=== PATIENT | male | born 1945 | race Caucasian/White ===

== ENCOUNTER 2022-12-10 16:25 | Emergency (ER) | payer MEDICARE, OTHER ==
[2022-12-10] MEDS ORDERED: Ketorolac 30 MG/ML SDV IM ONE (16:56)
[2022-12-10] MEDS ORDERED: Acetaminophen/oxyCODONE 325-5 MG Tab PO STA (16:56)
[2022-12-10] MEDS ORDERED: Cyclobenzaprine 10 MG Tab PO ONE (16:56)
[2022-12-10] MEDS ORDERED: Lidocaine 4% 1 each Patch TOP STA (17:05)
== END 2022-12-10 18:20 | disposition home or self-care (01) ==
LOC: FB.ED 16:25
DX: M51.36 Other intervertebral disc degeneration, lumbar region (principal); Z88.2 Allergy status to sulfonamides
CPT/HCPCS: 96372; 99283; A9270-GY; J1885

== ENCOUNTER 2022-12-13 10:03 | Emergency (ER) | payer MEDICARE ==
[2022-12-13] MEDS ORDERED: Sodium Chloride 0.9% 10 ML Syringe FLUSH PRN (10:28)
[2022-12-13] MEDS ORDERED: Sodium Chloride 0.9% 500 ML IV ONE ×4 (10:51→16:10)
[2022-12-13 11:07] LABS: HEMATOCRIT 37.5 % (38.3-50.1); HEMOGLOBIN 12.5 g/dL (12.9-17.7); MEAN CORPUSCULAR HEMOGLOBIN 30.2 pg (27.0-33.3); MEAN CORPUSCULAR HGB CONC 33.4 g/dL (28.7-35.3); MEAN CORPUSCULAR VOLUME 90.5 fL (80.8-98.7); MEAN PLATELET VOLUME 7.3 fL (6.7-11.0); PLATELET COUNT,PLT 199 x10(3)uL (117-477); RED BLOOD CELL COUNT 4.14 x10(6)uL (3.90-5.90); RED CELL DISTRIBUTION WIDTH 16.8 % (12.4-15.0); WHITE BLOOD CELL COUNT,WBC 11.1 x10-3/uL (3.2-10.1)
[2022-12-13 11:10] LABS: A/G RATIO 0.7; ALANINE AMINOTRANSFERASE,ALT 25 U/L (12-36); ALBUMIN 3.1 g/dL (3.2-4.6); ALKALINE PHOSPHATASE 112 IU/L (56-112); ASPARTATE AMNIOTRANSFERASE,AST 35 IU/L (5-25); BILIRUBIN TOTAL 0.4 mg/dL (0.1-1.3); BUN/CREATININE RATIO 17.7 (9-20); CALCIUM 7.1 mg/dL (8.6-10.2); CHLORIDE,CL 100 mmol/L (100-110); EST CRCL DRUG DOSING (CG) 7.82 mL/min; ESTIMATED GFR 7 mL/min (>60); GLUCOSE RANDOM 137 mg/dL (80-116); MAGNESIUM 1.7 mg/dL (1.8-2.5); PROTEIN TOTAL,TP 7.7 g/dL (6.0-8.0); SODIUM,NA 133 mmol/L (135-145)
[2022-12-13 11:18] LABS: TROPONIN I 43.7 pg/mL (4.0-60.3)
[2022-12-13 11:19] LABS: ANISOCYTOSIS FEW; LYMPHOCYTES PERCENT MAN 6 % (13-37); MONOCYTES PERCENT MAN 4 % (4-12); SEG NEUTROPHILS PERCENT MAN 90 % (46-82)
[2022-12-13 11:25] LABS: CARBON DIOXIDE,CO2 5 mmol/L (21-32); POTASSIUM,K 6.2 mmol/L (3.5-5.3)
[2022-12-13 11:27] LABS: C-REACTIVE PROTEIN 12.94 mg/dL (<0.33)
[2022-12-13 11:28] LABS: INFLUENZA A NAA NEGATIVE (NEGATIVE); INFLUENZA B NAA NEGATIVE (NEGATIVE); RESPIRATORY SYNCYTIAL VIR NAA NEGATIVE (NEGATIVE)
[2022-12-13 11:30] LABS: BLOOD UREA NITROGEN,BUN 140 mg/dL (7-18); CREATININE 7.9 mg/dL (0.70-1.30)
[2022-12-13 11:32] LABS: CORONAVIRUS COVID-19 NAA NEGATIVE (NEGATIVE)
[2022-12-13] MEDS ORDERED: 50% Dextrose in Water 50 ML Syringe IVPUSH ONE (11:33)
[2022-12-13] MEDS ORDERED: Sodium Bicarbonate 8.4% 50 MEQ/50 ML Syringe IVPUSH ONE (11:33)
[2022-12-13] MEDS ORDERED: Insulin Regular, Human 100 Units/ML 3 ML Vial IV ONE (11:33)
[2022-12-13] MEDS ORDERED: Albuterol 0.083% 2.5 MG/3 ML Neb Soln NEB ONE (11:33)
[2022-12-13] MEDS ORDERED: 50% Dextrose in Water 50 ML Syringe IVPUSH PRN (11:33)
[2022-12-13] MEDS ORDERED: Glucagon,Human Recombinant 1 MG Vial IM PRN (11:33)
[2022-12-13 11:57] LABS: BASE EXCESS VENOUS,POC -21 mmol/L (-2 - 3+); PCO2 VENOUS,POC 16 mmHg (41-51); PH VENOUS,POC 7.15 pH Units (7.32-7.43)
[2022-12-13] MEDS ORDERED: cefTRIAXone 2 GM Vial IVPUSH ONE (12:02)
[2022-12-13] MEDS ORDERED: cefTRIAXone 1 GM Vial IVPUSH ONE (12:15)
[2022-12-13] MEDS ORDERED: Lidocaine 2% HCl 6 ML Jel ONE (12:31)
[2022-12-13] MEDS ORDERED: Sodium Polystyrene Sulfonate 15 GM/60 ML Susp 60 ML Bot PO ONE (12:47)
[2022-12-13 14:40] LABS: BILIRUBIN,URINE NEGATIVE (NEGATIVE); GLUCOSE,URINE NORMAL (NORMAL); KETONES,URINE NEGATIVE (NEGATIVE); LEUKOCYTE ESTERASE,URINE SMALL (NEGATIVE); NITRITE,URINE NEGATIVE (NEGATIVE); OCCULT BLOOD,URINE LARGE (NEGATIVE); PROTEIN,URINE NEGATIVE (NEGATIVE); UROBILINOGEN,URINE NORMAL (NEGATIVE)
[2022-12-13 14:41] LABS: APPEARANCE,URINE CLEAR (CLEAR); COLOR,URINE YELLOW (YELLOW); RBC,URINE 20-30 (0-5)
[2022-12-13 14:42] LABS: BACTERIA,URINE MODERATE (NS); SQUAMOUS EPITHELIAL CELLS,UR FEW (NS,R,O)
== END 2022-12-13 18:41 ==
LOC: FB.ED 10:03
DX: L03.315 Cellulitis of perineum (principal); L03.115 Cellulitis of right lower limb; E87.20 Acidosis, unspecified; N17.9 Acute kidney failure, unspecified; A41.9 Sepsis, unspecified organism; I10 Essential (primary) hypertension; I25.10 Atherosclerotic heart disease of native coronary artery without angina pectoris; Z88.2 Allergy status to sulfonamides; Z88.1 Allergy status to other antibiotic agents; Z79.899 Other long term (current) drug therapy; Z20.822 Contact with and (suspected) exposure to COVID-19
CPT/HCPCS: 0241U; 36415; 51702; 73590; 74176; 80053; 81001; 83605; 83735; 83880; 84132; 84484; 85025; 86140; 87040; 87086; 93005; 96361; 96374; 96375; 99285; A9270; J0696; J1815; J7040

== ENCOUNTER 2022-12-19 09:54 | Inpatient (IN) | payer MEDICARE ==
[2022-12-19] MEDS ORDERED: Nitroglycerin 0.4 MG Tab.SL SL PRN (18:05)
[2022-12-19] MEDS ORDERED: Ibuprofen 200 MG Tab PO PRN (18:05)
[2022-12-19] MEDS ORDERED: Albuterol 8 GM Inhaler INH PRN (18:05)
[2022-12-19] MEDS ORDERED: Furosemide 20 MG Tab PO PRN (18:05)
[2022-12-19] MEDS: Sodium Bicarbonate 650 MG Tab PO SCH (20:14)
[2022-12-19] MEDS: Cyclobenzaprine 10 MG Tab PO SCH (20:15)
[2022-12-19] MEDS: Montelukast 10 MG Tab PO SCH (20:15)
[2022-12-19] MEDS: Amoxicillin/Clavulanate K 875-125 MG Tab PO SCH (20:15)
[2022-12-20] MEDS: traMADol 50 MG Tab PO PRN ×2 (00:28→08:52)
[2022-12-20] MEDS: Pantoprazole 40 MG Tab.CR PO SCH (05:53)
[2022-12-20] MEDS: Amoxicillin/Clavulanate K 875-125 MG Tab PO SCH ×2 (09:48→18:20)
[2022-12-20] MEDS: metFORMIN 500 MG Tab PO SCH ×2 (09:48→18:20)
[2022-12-20] MEDS: Rosuvastatin 5 MG Tab PO SCH (09:49)
[2022-12-20] MEDS: Cyclobenzaprine 10 MG Tab PO SCH ×3 (09:50→21:32)
[2022-12-20] MEDS: Tamsulosin 0.4 MG Cap.ER PO SCH (09:51)
[2022-12-20] MEDS: Nicotine 21 MG/24 Hr Patch TRDERM SCH (09:51)
[2022-12-20] MEDS: Primidone 50 MG Tab PO SCH (09:53)
[2022-12-20] MEDS: Propranolol 60 MG Cap.ER PO SCH (09:53)
[2022-12-20] MEDS: Propranolol 80 MG Cap.ER PO SCH (09:53)
[2022-12-20] MEDS: Lisinopril 10 MG Tab PO SCH (09:54)
[2022-12-20] MEDS: Calcitriol 0.25 MCG Cap PO SCH (09:55)
[2022-12-20] MEDS: Sodium Bicarbonate 650 MG Tab PO SCH ×3 (09:55→21:34)
[2022-12-20] MEDS: Cetirizine 10 MG Tab PO SCH (09:56)
[2022-12-20] MEDS: Montelukast 10 MG Tab PO SCH (21:35)
[2022-12-21] MEDS: traMADol 50 MG Tab PO PRN (00:40)
[2022-12-21] MEDS: Pantoprazole 40 MG Tab.CR PO SCH (06:44)
[2022-12-21] MEDS: Amoxicillin/Clavulanate K 875-125 MG Tab PO SCH ×2 (08:45→18:59)
[2022-12-21] MEDS: metFORMIN 500 MG Tab PO SCH ×2 (08:45→18:49)
[2022-12-21] MEDS: Rosuvastatin 5 MG Tab PO SCH (09:42)
[2022-12-21] MEDS: Propranolol 80 MG Cap.ER PO SCH (09:45)
[2022-12-21] MEDS: Propranolol 60 MG Cap.ER PO SCH (09:45)
[2022-12-21] MEDS: Cyclobenzaprine 10 MG Tab PO SCH ×3 (09:47→20:11)
[2022-12-21] MEDS: Tamsulosin 0.4 MG Cap.ER PO SCH (09:48)
[2022-12-21] MEDS: Nicotine 21 MG/24 Hr Patch TRDERM SCH (09:48)
[2022-12-21] MEDS: Aspirin 81 MG Tab.EC PO SCH (09:49)
[2022-12-21] MEDS: Primidone 50 MG Tab PO SCH (09:49)
[2022-12-21] MEDS: Calcitriol 0.25 MCG Cap PO SCH (09:50)
[2022-12-21] MEDS: Lisinopril 10 MG Tab PO SCH (09:50)
[2022-12-21] MEDS: Cetirizine 10 MG Tab PO SCH (09:51)
[2022-12-21] MEDS: Sodium Bicarbonate 650 MG Tab PO SCH ×3 (09:51→20:10)
[2022-12-21 10:18] LABS: HEMATOCRIT 32.4 % (38.3-50.1); HEMOGLOBIN 10.8 g/dL (12.9-17.7); MEAN CORPUSCULAR HEMOGLOBIN 29.8 pg (27.0-33.3); MEAN CORPUSCULAR HGB CONC 33.3 g/dL (28.7-35.3); MEAN CORPUSCULAR VOLUME 89.4 fL (80.8-98.7); MEAN PLATELET VOLUME 7.7 fL (6.7-11.0); PLATELET COUNT,PLT 397 x10(3)uL (117-477); RED BLOOD CELL COUNT 3.62 x10(6)uL (3.90-5.90); RED CELL DISTRIBUTION WIDTH 14.3 % (12.4-15.0); WHITE BLOOD CELL COUNT,WBC 17.5 x10-3/uL (3.2-10.1)
[2022-12-21 10:23] LABS: BLOOD UREA NITROGEN,BUN 39 mg/dL (7-18); BUN/CREATININE RATIO 22.9 (9-20); CALCIUM 9.2 mg/dL (8.6-10.2); CARBON DIOXIDE,CO2 27 mmol/L (21-32); CHLORIDE,CL 101 mmol/L (100-110); CREATININE 1.7 mg/dL (0.70-1.30); EST CRCL DRUG DOSING (CG) 36.32 mL/min; ESTIMATED GFR 42 mL/min (>60); GLUCOSE RANDOM 156 mg/dL (80-116); POTASSIUM,K 3.7 mmol/L (3.5-5.3); SODIUM,NA 137 mmol/L (135-145)
[2022-12-21 10:29] LABS: EOSINOPHILS PERCENT MAN 2 % (0-5); LYMPHOCYTES PERCENT MAN 5 % (13-37); MONOCYTES PERCENT MAN 12 % (4-12); SEG NEUTROPHILS PERCENT MAN 81 % (46-82)
[2022-12-21] MEDS: Furosemide 40 MG Tab PO SCH (11:38)
[2022-12-21 15:58] LABS: BILIRUBIN,URINE SMALL (NEGATIVE); GLUCOSE,URINE NORMAL (NORMAL); KETONES,URINE 15 mg/dL (NEGATIVE); LEUKOCYTE ESTERASE,URINE SMALL (NEGATIVE); NITRITE,URINE NEGATIVE (NEGATIVE); OCCULT BLOOD,URINE TRACE (NEGATIVE); PROTEIN,URINE TRACE mg/dL (NEGATIVE); UROBILINOGEN,URINE NORMAL (NEGATIVE)
[2022-12-21] MEDS ORDERED: VANCOmycin 1.5 GM/300 ML 1.5 GM in Premix Bag 1 BAG IV ONE (16:00)
[2022-12-21 16:03] LABS: APPEARANCE,URINE SLIGHTLY CLOUDY (CLEAR); BACTERIA,URINE MANY (NS); COLOR,URINE ORANGE (YELLOW); HYALINE CASTS,URINE MODERATE (NS); MUCUS,URINE MODERATE (NS); RBC,URINE 0-5 (0-5); SQUAMOUS EPITHELIAL CELLS,UR MODERATE (NS,R,O)
[2022-12-21 16:09] LABS: LACTIC ACID 1.1 mmol/L (0.4-2.0)
[2022-12-21] MEDS: Sodium Chloride 0.9% 1,000 ML IV ONE ×2 (17:33→18:40)
[2022-12-21] MEDS: cefTRIAXone 1 GM Vial IVPUSH SCH (18:52)
[2022-12-21] MEDS: Montelukast 10 MG Tab PO SCH (20:21)
[2022-12-21] MEDS: Sodium Chloride 0.9% 10 ML Syringe FLUSH PRN (20:21)
[2022-12-21] MEDS ORDERED: Ergocalciferol (Vitamin D2) 1.25 MG Cap PO SCH (21:00)
[2022-12-22] MEDS: Pantoprazole 40 MG Tab.CR PO SCH (05:41)
[2022-12-22 06:41] LABS: BASOPHILS ABSOLUTE AUTO 0.1 x10-3/uL (0.0-0.3); BASOPHILS PERCENT AUTO 0.7 % (0.3-3.8); EOSINOPHILS ABSOLUTE AUTO 0.1 x10-3/uL (0.0-0.6); HEMOGLOBIN 8.7 g/dL (12.9-17.7); LYMPHOCYTES ABSOLUTE AUTO 0.9 x10-3/uL (0.5-4.5); LYMPHOCYTES PERCENT AUTO 8.9 % (15.8-45.3); MEAN CORPUSCULAR HGB CONC 33.5 g/dL (28.7-35.3); MEAN CORPUSCULAR VOLUME 89.4 fL (80.8-98.7); MEAN PLATELET VOLUME 7.7 fL (6.7-11.0); MONOCYTES ABSOLUTE AUTO 0.9 x10-3/uL (0.0-1.2); NEUTROPHILS ABSOLUTE AUTO 8.3 x10-3/uL (1.7-6.9); NEUTROPHILS PERCENT AUTO 80.4 % (40.3-71.8); PLATELET COUNT,PLT 370 x10(3)uL (117-477); RED BLOOD CELL COUNT 2.91 x10(6)uL (3.90-5.90); RED CELL DISTRIBUTION WIDTH 14.3 % (12.4-15.0); WHITE BLOOD CELL COUNT,WBC 10.3 x10-3/uL (3.2-10.1)
[2022-12-22 06:52] LABS: A/G RATIO 0.5; ALANINE AMINOTRANSFERASE,ALT 28 U/L (12-36); ALBUMIN 2.1 g/dL (3.2-4.6); ALKALINE PHOSPHATASE 71 IU/L (56-112); ASPARTATE AMNIOTRANSFERASE,AST 26 IU/L (5-25); BILIRUBIN TOTAL 0.5 mg/dL (0.1-1.3); BLOOD UREA NITROGEN,BUN 31 mg/dL (7-18); BUN/CREATININE RATIO 22.1 (9-20); CALCIUM 8.8 mg/dL (8.6-10.2); CARBON DIOXIDE,CO2 27 mmol/L (21-32); CHLORIDE,CL 104 mmol/L (100-110); CREATININE 1.4 mg/dL (0.70-1.30); EST CRCL DRUG DOSING (CG) 44.11 mL/min; ESTIMATED GFR 52 mL/min (>60); GLUCOSE RANDOM 125 mg/dL (80-116); POTASSIUM,K 3.2 mmol/L (3.5-5.3); SODIUM,NA 140 mmol/L (135-145)
[2022-12-22] MEDS: traMADol 50 MG Tab PO PRN (06:59)
[2022-12-22] MEDS: Tamsulosin 0.4 MG Cap.ER PO SCH (08:22)
[2022-12-22] MEDS: Sodium Bicarbonate 650 MG Tab PO SCH ×3 (08:22→21:43)
[2022-12-22] MEDS: Cetirizine 10 MG Tab PO SCH (08:22)
[2022-12-22] MEDS: Calcitriol 0.25 MCG Cap PO SCH (08:22)
[2022-12-22] MEDS: Cyclobenzaprine 10 MG Tab PO SCH ×3 (08:22→21:40)
[2022-12-22] MEDS: metFORMIN 500 MG Tab PO SCH ×2 (08:22→18:08)
[2022-12-22] MEDS: Rosuvastatin 5 MG Tab PO SCH (08:23)
[2022-12-22] MEDS: Nicotine 21 MG/24 Hr Patch TRDERM SCH (08:25)
[2022-12-22] MEDS: Primidone 50 MG Tab PO SCH (08:27)
[2022-12-22] MEDS ORDERED: Potassium Chloride 20 MEQ Tab.ER PO ONE (08:46)
[2022-12-22] MEDS: VANCOmycin 1.25 GM/250 ML 1.25 GM in Premix Bag 1 BAG IV SCH (10:37)
[2022-12-22] MEDS: Lisinopril 10 MG Tab PO SCH (10:42)
[2022-12-22] MEDS: Propranolol 80 MG Cap.ER PO SCH (10:42)
[2022-12-22] MEDS: Propranolol 60 MG Cap.ER PO SCH (10:43)
[2022-12-22] MEDS: Furosemide 40 MG Tab PO SCH (10:43)
[2022-12-22] MEDS: traMADol 50 MG Tab PO SCH (15:45)
[2022-12-22] MEDS: cefTRIAXone 1 GM Vial IVPUSH SCH (18:09)
[2022-12-22] MEDS: Montelukast 10 MG Tab PO SCH (21:40)
[2022-12-23] MEDS ORDERED: traMADol 50 MG Tab ONE (01:16)
[2022-12-23] MEDS: traMADol 50 MG Tab PO SCH ×2 (01:18→10:35)
[2022-12-23] MEDS: Pantoprazole 40 MG Tab.CR PO SCH (06:28)
[2022-12-23 06:30] LABS: BASOPHILS PERCENT AUTO 0.5 % (0.3-3.8); EOSINOPHILS ABSOLUTE AUTO 0.1 x10-3/uL (0.0-0.6); EOSINOPHILS PERCENT AUTO 1.1 % (0.1-6.8); HEMATOCRIT 23.6 % (38.3-50.1); LYMPHOCYTES ABSOLUTE AUTO 0.8 x10-3/uL (0.5-4.5); LYMPHOCYTES PERCENT AUTO 8.7 % (15.8-45.3); MEAN CORPUSCULAR HEMOGLOBIN 30.8 pg (27.0-33.3); MEAN CORPUSCULAR VOLUME 90.6 fL (80.8-98.7); MEAN PLATELET VOLUME 6.7 fL (6.7-11.0); MONOCYTES PERCENT AUTO 10.8 % (5.5-15.2); NEUTROPHILS PERCENT AUTO 78.9 % (40.3-71.8); PLATELET COUNT,PLT 386 x10(3)uL (117-477); RED BLOOD CELL COUNT 2.61 x10(6)uL (3.90-5.90); RED CELL DISTRIBUTION WIDTH 14.8 % (12.4-15.0); WHITE BLOOD CELL COUNT,WBC 8.9 x10-3/uL (3.2-10.1)
[2022-12-23 06:42] LABS: A/G RATIO 0.5; ALANINE AMINOTRANSFERASE,ALT 55 U/L (12-36); ALBUMIN 1.8 g/dL (3.2-4.6); ALKALINE PHOSPHATASE 75 IU/L (56-112); ASPARTATE AMNIOTRANSFERASE,AST 70 IU/L (5-25); BILIRUBIN TOTAL 0.4 mg/dL (0.1-1.3); BLOOD UREA NITROGEN,BUN 26 mg/dL (7-18); BUN/CREATININE RATIO 21.7 (9-20); CALCIUM 8.5 mg/dL (8.6-10.2); CARBON DIOXIDE,CO2 30 mmol/L (21-32); CHLORIDE,CL 107 mmol/L (100-110); CREATININE 1.2 mg/dL (0.70-1.30); EST CRCL DRUG DOSING (CG) 51.46 mL/min; ESTIMATED GFR 63 mL/min (>60); GLUCOSE RANDOM 118 mg/dL (80-116); POTASSIUM,K 3.2 mmol/L (3.5-5.3); PROTEIN TOTAL,TP 5.5 g/dL (6.0-8.0); SODIUM,NA 143 mmol/L (135-145)
[2022-12-23] MEDS: Furosemide 40 MG Tab PO SCH (10:08)
[2022-12-23] MEDS: Primidone 50 MG Tab PO SCH (10:08)
[2022-12-23] MEDS: Propranolol 60 MG Cap.ER PO SCH (10:08)
[2022-12-23] MEDS: Sodium Bicarbonate 650 MG Tab PO SCH ×3 (10:08→21:51)
[2022-12-23] MEDS: Tamsulosin 0.4 MG Cap.ER PO SCH (10:09)
[2022-12-23] MEDS: Rosuvastatin 5 MG Tab PO SCH (10:09)
[2022-12-23] MEDS: Cyclobenzaprine 10 MG Tab PO SCH ×3 (10:11→21:52)
[2022-12-23] MEDS: Nicotine 21 MG/24 Hr Patch TRDERM SCH (10:11)
[2022-12-23] MEDS: Cetirizine 10 MG Tab PO SCH (10:12)
[2022-12-23] MEDS: Lisinopril 10 MG Tab PO SCH (10:12)
[2022-12-23] MEDS: Aspirin 81 MG Tab.EC PO SCH (10:13)
[2022-12-23] MEDS: metFORMIN 500 MG Tab PO SCH ×2 (10:14→17:10)
[2022-12-23] MEDS: Calcitriol 0.25 MCG Cap PO SCH (10:14)
[2022-12-23] MEDS: Propranolol 80 MG Cap.ER PO SCH (10:20)
[2022-12-23] MEDS ORDERED: Potassium Chloride 20 MEQ Tab.ER PO ONE (10:23)
[2022-12-23] MEDS ORDERED: traMADol 50 MG Tab PO PRN (10:34)
[2022-12-23] MEDS: VANCOmycin 1.25 GM/250 ML 1.25 GM in Premix Bag 1 BAG IV SCH (10:47)
[2022-12-23] MEDS: traMADol 50 MG Tab PO PRN ×2 (11:07→17:10)
[2022-12-23] MEDS: Acetaminophen 325 MG Tab PO PRN (13:19)
[2022-12-23] MEDS: cefTRIAXone 1 GM Vial IVPUSH SCH (17:11)
[2022-12-23] MEDS: Montelukast 10 MG Tab PO SCH (21:53)
[2022-12-24] MEDS: traMADol 50 MG Tab PO PRN ×3 (02:35→20:50)
[2022-12-24] MEDS: Acetaminophen 325 MG Tab PO PRN ×3 (05:52→20:52)
[2022-12-24] MEDS: Pantoprazole 40 MG Tab.CR PO SCH (05:52)
[2022-12-24] MEDS: Nicotine 21 MG/24 Hr Patch TRDERM SCH (08:22)
[2022-12-24] MEDS: Calcitriol 0.25 MCG Cap PO SCH (08:25)
[2022-12-24] MEDS: Cyclobenzaprine 10 MG Tab PO SCH ×3 (08:25→20:56)
[2022-12-24] MEDS: Sodium Bicarbonate 650 MG Tab PO SCH ×3 (08:26→20:53)
[2022-12-24] MEDS: Tamsulosin 0.4 MG Cap.ER PO SCH (08:26)
[2022-12-24] MEDS: Cetirizine 10 MG Tab PO SCH (08:26)
[2022-12-24] MEDS: metFORMIN 500 MG Tab PO SCH ×2 (08:26→18:01)
[2022-12-24] MEDS: Rosuvastatin 5 MG Tab PO SCH (08:31)
[2022-12-24] MEDS: Primidone 50 MG Tab PO SCH (08:32)
[2022-12-24] MEDS: Furosemide 40 MG Tab PO SCH (09:56)
[2022-12-24] MEDS: Propranolol 60 MG Cap.ER PO SCH (09:56)
[2022-12-24] MEDS: Propranolol 80 MG Cap.ER PO SCH (09:56)
[2022-12-24] MEDS: Lisinopril 10 MG Tab PO SCH (09:57)
[2022-12-24] MEDS ORDERED: Furosemide 40 MG/4 ML VIAL IVPUSH ONE (09:58)
[2022-12-24 10:15] LABS: BASOPHILS ABSOLUTE AUTO 0.1 x10-3/uL (0.0-0.3); BASOPHILS PERCENT AUTO 0.6 % (0.3-3.8); EOSINOPHILS ABSOLUTE AUTO 0.1 x10-3/uL (0.0-0.6); EOSINOPHILS PERCENT AUTO 0.8 % (0.1-6.8); HEMATOCRIT 26.4 % (38.3-50.1); HEMOGLOBIN 8.8 g/dL (12.9-17.7); LYMPHOCYTES ABSOLUTE AUTO 0.6 x10-3/uL (0.5-4.5); LYMPHOCYTES PERCENT AUTO 5.5 % (15.8-45.3); MEAN CORPUSCULAR HEMOGLOBIN 29.7 pg (27.0-33.3); MEAN CORPUSCULAR HGB CONC 33.3 g/dL (28.7-35.3); MEAN CORPUSCULAR VOLUME 89.1 fL (80.8-98.7); MEAN PLATELET VOLUME 7.1 fL (6.7-11.0); MONOCYTES PERCENT AUTO 8.6 % (5.5-15.2); NEUTROPHILS ABSOLUTE AUTO 9.5 x10-3/uL (1.7-6.9); NEUTROPHILS PERCENT AUTO 84.5 % (40.3-71.8); PLATELET COUNT,PLT 381 x10(3)uL (117-477); RED BLOOD CELL COUNT 2.96 x10(6)uL (3.90-5.90); RED CELL DISTRIBUTION WIDTH 14.8 % (12.4-15.0); WHITE BLOOD CELL COUNT,WBC 11.2 x10-3/uL (3.2-10.1)
[2022-12-24 10:17] LABS: BLOOD UREA NITROGEN,BUN 24 mg/dL (7-18); CALCIUM 8.5 mg/dL (8.6-10.2); CARBON DIOXIDE,CO2 26 mmol/L (21-32); CHLORIDE,CL 102 mmol/L (100-110); CREATININE 1.2 mg/dL (0.70-1.30); EST CRCL DRUG DOSING (CG) 51.46 mL/min; ESTIMATED GFR 63 mL/min (>60); GLUCOSE RANDOM 187 mg/dL (80-116); POTASSIUM,K 3.8 mmol/L (3.5-5.3); SODIUM,NA 137 mmol/L (135-145)
[2022-12-24] MEDS ORDERED: Cephalexin 500 MG Cap PO SCH (11:00)
[2022-12-24] MEDS: Amoxicillin/Clavulanate K 875-125 MG Tab PO SCH ×2 (11:26→20:58)
[2022-12-24 16:09] LABS: ALBUMIN 1.8 g/dL (3.2-4.6); BILIRUBIN DIRECT 0.06 mg/dL (0.10-0.20); BILIRUBIN TOTAL 0.4 mg/dL (0.1-1.3); PROTEIN TOTAL,TP 5.9 g/dL (6.0-8.0)
[2022-12-24 16:28] LABS: BILIRUBIN,URINE NEGATIVE (NEGATIVE); GLUCOSE,URINE NORMAL (NORMAL); KETONES,URINE NEGATIVE (NEGATIVE); LEUKOCYTE ESTERASE,URINE NEGATIVE (NEGATIVE); NITRITE,URINE NEGATIVE (NEGATIVE); OCCULT BLOOD,URINE LARGE (NEGATIVE); PROTEIN,URINE NEGATIVE (NEGATIVE); UROBILINOGEN,URINE NORMAL (NEGATIVE)
[2022-12-24 17:47] LABS: APPEARANCE,URINE CLEAR (CLEAR); BACTERIA,URINE FEW (NS); COLOR,URINE YELLOW (YELLOW); WBC,URINE 0-5 (0-5)
[2022-12-24] MEDS: Montelukast 10 MG Tab PO SCH (20:55)
[2022-12-25] MEDS: Pantoprazole 40 MG Tab.CR PO SCH (06:15)
[2022-12-25 06:23] LABS: BASOPHILS ABSOLUTE AUTO 0.1 x10-3/uL (0.0-0.3); BASOPHILS PERCENT AUTO 0.6 % (0.3-3.8); EOSINOPHILS ABSOLUTE AUTO 0.1 x10-3/uL (0.0-0.6); EOSINOPHILS PERCENT AUTO 1.4 % (0.1-6.8); HEMATOCRIT 23.7 % (38.3-50.1); HEMOGLOBIN 8.2 g/dL (12.9-17.7); LYMPHOCYTES ABSOLUTE AUTO 0.8 x10-3/uL (0.5-4.5); LYMPHOCYTES PERCENT AUTO 10.1 % (15.8-45.3); MEAN CORPUSCULAR HEMOGLOBIN 30.7 pg (27.0-33.3); MEAN CORPUSCULAR HGB CONC 34.6 g/dL (28.7-35.3); MEAN CORPUSCULAR VOLUME 88.7 fL (80.8-98.7); MEAN PLATELET VOLUME 6.8 fL (6.7-11.0); MONOCYTES ABSOLUTE AUTO 0.7 x10-3/uL (0.0-1.2); MONOCYTES PERCENT AUTO 8.4 % (5.5-15.2); NEUTROPHILS ABSOLUTE AUTO 6.6 x10-3/uL (1.7-6.9); NEUTROPHILS PERCENT AUTO 79.5 % (40.3-71.8); PLATELET COUNT,PLT 459 x10(3)uL (117-477); RED BLOOD CELL COUNT 2.68 x10(6)uL (3.90-5.90); RED CELL DISTRIBUTION WIDTH 14.3 % (12.4-15.0); WHITE BLOOD CELL COUNT,WBC 8.4 x10-3/uL (3.2-10.1)
[2022-12-25 06:37] LABS: A/G RATIO 0.4; ALKALINE PHOSPHATASE 205 IU/L (56-112); BILIRUBIN TOTAL 0.4 mg/dL (0.1-1.3); BLOOD UREA NITROGEN,BUN 18 mg/dL (7-18); CALCIUM 8.2 mg/dL (8.6-10.2); CARBON DIOXIDE,CO2 30 mmol/L (21-32); CHLORIDE,CL 104 mmol/L (100-110); EST CRCL DRUG DOSING (CG) 61.75 mL/min; ESTIMATED GFR 78 mL/min (>60); GLUCOSE RANDOM 120 mg/dL (80-116); PROTEIN TOTAL,TP 5.6 g/dL (6.0-8.0); SODIUM,NA 140 mmol/L (135-145)
[2022-12-25 06:38] LABS: ALANINE AMINOTRANSFERASE,ALT 210 U/L (12-36); ALBUMIN 1.7 g/dL (3.2-4.6); ASPARTATE AMNIOTRANSFERASE,AST 210 IU/L (5-25)
[2022-12-25] MEDS ORDERED: Potassium Chloride 20 MEQ Tab.ER PO ONE (08:23)
[2022-12-25] MEDS ORDERED: Furosemide 20 MG/2 ML VIAL IVPUSH SCH (09:00)
[2022-12-25] MEDS: Nicotine 21 MG/24 Hr Patch TRDERM SCH (09:10)
[2022-12-25] MEDS: traMADol 50 MG Tab PO PRN (09:11)
[2022-12-25] MEDS: Sodium Bicarbonate 650 MG Tab PO SCH (09:11)
[2022-12-25] MEDS: Cyclobenzaprine 10 MG Tab PO SCH (09:12)
[2022-12-25] MEDS: Calcitriol 0.25 MCG Cap PO SCH (09:12)
[2022-12-25] MEDS: Aspirin 81 MG Tab.EC PO SCH (09:13)
[2022-12-25] MEDS: Cetirizine 10 MG Tab PO SCH (09:13)
[2022-12-25] MEDS: Lisinopril 10 MG Tab PO SCH (09:13)
[2022-12-25] MEDS: Amoxicillin/Clavulanate K 875-125 MG Tab PO SCH (09:14)
[2022-12-25] MEDS: metFORMIN 500 MG Tab PO SCH (09:14)
[2022-12-25] MEDS: Tamsulosin 0.4 MG Cap.ER PO SCH (09:15)
[2022-12-25] MEDS: Primidone 50 MG Tab PO SCH (09:15)
[2022-12-25] MEDS: Rosuvastatin 5 MG Tab PO SCH (09:16)
[2022-12-25] MEDS: Propranolol 80 MG Cap.ER PO SCH (09:23)
[2022-12-25] MEDS: Propranolol 60 MG Cap.ER PO SCH (09:23)
[2022-12-25] MEDS ORDERED: Enoxaparin 40 MG/0.4 ML Syringe SUBCUT SCH (10:00)
[2022-12-25] MEDS ORDERED: Metoprolol Tartrate 5 MG/5 ML SDV IVPUSH ONE (10:15)
[2022-12-25] MEDS ORDERED: metroNIDAZOLE/Normal Saline 500 MG in Premix Bag 1 BAG IV SCH ×2 (10:30→11:00)
[2022-12-25] MEDS ORDERED: Cefepime 2 GM Vial IVPUSH SCH (11:00)
[2022-12-25] MEDS: Acetaminophen 325 MG Tab PO PRN (11:05)
[2022-12-25] MEDS ORDERED: Metoprolol Tartrate 5 MG/5 ML SDV IVPUSH STA (11:18)
[2022-12-25] MEDS: Sodium Chloride 0.9% 10 ML Syringe FLUSH PRN (11:29)
[2022-12-25] MEDS ORDERED: Amiodarone 150 MG/3 ML SDV IVPUSH STA (12:19)
[2022-12-25 12:56] LABS: LACTIC ACID 1.1 mmol/L (0.4-2.0)
== END 2022-12-25 12:44 | disposition critical access hospital (66) | DRG 948 ==
LOC: FB.MS 14:25 → UNDOADMIN 14:25 → FB.MS 12-25 10:00
PROVIDERS: ADMIT Family Medicine; ATTEND Family Medicine
DX: R53.1 Weakness (principal); N17.9 Acute kidney failure, unspecified; I10 Essential (primary) hypertension; M54.50 Low back pain, unspecified; G89.29 Other chronic pain; E11.9 Type 2 diabetes mellitus without complications; Z66 Do not resuscitate; I25.10 Atherosclerotic heart disease of native coronary artery without angina pectoris; E78.00 Pure hypercholesterolemia, unspecified; E87.6 Hypokalemia; F17.210 Nicotine dependence, cigarettes, uncomplicated; J44.9 Chronic obstructive pulmonary disease, unspecified; K21.9 Gastro-esophageal reflux disease without esophagitis; N40.0 Benign prostatic hyperplasia without lower urinary tract symptoms; D64.9 Anemia, unspecified; Z79.82 Long term (current) use of aspirin; Z79.52 Long term (current) use of systemic steroids; Z79.899 Other long term (current) drug therapy; Z88.2 Allergy status to sulfonamides; Z88.8 Allergy status to other drugs, medicaments and biological substances; Z86.718 Personal history of other venous thrombosis and embolism; Z79.01 Long term (current) use of anticoagulants; Z98.42 Cataract extraction status, left eye; Z98.41 Cataract extraction status, right eye
CPT/HCPCS: 36415; 51702; 71045; 80048; 80053; 80076; 80202; 81001; 82272; 82947; 83605; 83735; 83880; 84443; 85025; 87040; 87086; 93005; 97110-GP; 97161-GP; 97165-GO; 97530-GP; A9270-GY; J0282; J0692; J0696; J1650; J1940; J3370; J3490; J7030

== ENCOUNTER 2022-12-25 12:44 | Inpatient (IN) | payer MEDICARE ==
[2022-12-25] MEDS ORDERED: Lactated Ringers 500 ML IV SCH (12:57)
[2022-12-25] MEDS ORDERED: Acetaminophen 325 MG Tab PO PRN (13:17)
[2022-12-25] MEDS ORDERED: Ondansetron 4 MG Tab.DIS PO PRN (13:17)
[2022-12-25] MEDS ORDERED: Polyethylene Glycol 3350 Powder 17 GM Packet PO PRN (13:17)
[2022-12-25] MEDS ORDERED: Naloxone 0.4 MG/ML SDV IVPUSH PRN (13:21)
[2022-12-25] MEDS ORDERED: Magnesium Sulfate/Water 4 GM in Premix Bag 1 BAG IV ONE (13:22)
[2022-12-25] MEDS: traMADol 50 MG Tab PO SCH ×2 (15:40→22:18)
[2022-12-25] MEDS: metroNIDAZOLE/Normal Saline 500 MG in Premix Bag 1 BAG IV SCH (18:37)
[2022-12-25] MEDS: Cefepime 2 GM Vial IVPUSH SCH (22:22)
[2022-12-26] MEDS: metroNIDAZOLE/Normal Saline 500 MG in Premix Bag 1 BAG IV SCH ×3 (03:41→19:21)
[2022-12-26] MEDS: traMADol 50 MG Tab PO SCH ×5 (03:42→21:51)
[2022-12-26 07:06] LABS: BASOPHILS ABSOLUTE AUTO 0.1 x10-3/uL (0.0-0.3); EOSINOPHILS ABSOLUTE AUTO 0.1 x10-3/uL (0.0-0.6); EOSINOPHILS PERCENT AUTO 1.2 % (0.1-6.8); HEMOGLOBIN 8.5 g/dL (12.9-17.7); LYMPHOCYTES ABSOLUTE AUTO 0.7 x10-3/uL (0.5-4.5); LYMPHOCYTES PERCENT AUTO 7.9 % (15.8-45.3); MEAN CORPUSCULAR HEMOGLOBIN 30.2 pg (27.0-33.3); MEAN CORPUSCULAR HGB CONC 34.2 g/dL (28.7-35.3); MEAN CORPUSCULAR VOLUME 88.4 fL (80.8-98.7); MEAN PLATELET VOLUME 6.5 fL (6.7-11.0); MONOCYTES ABSOLUTE AUTO 0.7 x10-3/uL (0.0-1.2); MONOCYTES PERCENT AUTO 8.1 % (5.5-15.2); NEUTROPHILS ABSOLUTE AUTO 7.3 x10-3/uL (1.7-6.9); NEUTROPHILS PERCENT AUTO 81.8 % (40.3-71.8); PLATELET COUNT,PLT 480 x10(3)uL (117-477); RED BLOOD CELL COUNT 2.83 x10(6)uL (3.90-5.90); RED CELL DISTRIBUTION WIDTH 14.2 % (12.4-15.0); WHITE BLOOD CELL COUNT,WBC 8.9 x10-3/uL (3.2-10.1)
[2022-12-26 07:21] LABS: A/G RATIO 0.4; ALBUMIN 1.8 g/dL (3.2-4.6); ALKALINE PHOSPHATASE 213 IU/L (56-112); ASPARTATE AMNIOTRANSFERASE,AST 117 IU/L (5-25); BILIRUBIN TOTAL 0.4 mg/dL (0.1-1.3); BLOOD UREA NITROGEN,BUN 16 mg/dL (7-18); CALCIUM 8.5 mg/dL (8.6-10.2); CARBON DIOXIDE,CO2 29 mmol/L (21-32); CHLORIDE,CL 103 mmol/L (100-110); EST CRCL DRUG DOSING (CG) 61.75 mL/min; ESTIMATED GFR 78 mL/min (>60); GLUCOSE RANDOM 120 mg/dL (80-116); MAGNESIUM 1.5 mg/dL (1.8-2.5); POTASSIUM,K 3.1 mmol/L (3.5-5.3); SODIUM,NA 140 mmol/L (135-145)
[2022-12-26 07:27] LABS: ALANINE AMINOTRANSFERASE,ALT 162 U/L (12-36)
[2022-12-26] MEDS ORDERED: Magnesium Sulfate/Water 4 GM in Premix Bag 1 BAG IV ONE (07:56)
[2022-12-26] MEDS ORDERED: Potassium Chloride 20 MEQ Tab.ER PO ONE (07:57)
[2022-12-26] MEDS: Metoprolol Tartrate 50 MG Tab PO SCH ×2 (08:32→20:34)
[2022-12-26] MEDS ORDERED: Amiodarone 200 MG Tab PO SCH (09:00)
[2022-12-26] MEDS: Furosemide 40 MG/4 ML VIAL IVPUSH SCH (11:02)
[2022-12-26] MEDS: Enoxaparin 40 MG/0.4 ML Syringe SUBCUT SCH (11:03)
[2022-12-26] MEDS: Amiodarone 200 MG Tab PO SCH ×2 (11:04→20:35)
[2022-12-26] MEDS: Cefepime 2 GM Vial IVPUSH SCH ×2 (11:05→22:00)
[2022-12-26] MEDS: Sodium Chloride 0.9% 10 ML Syringe FLUSH PRN ×7 (11:20→22:07)
[2022-12-27] MEDS: metroNIDAZOLE/Normal Saline 500 MG in Premix Bag 1 BAG IV SCH ×3 (03:10→22:13)
[2022-12-27] MEDS: traMADol 50 MG Tab PO SCH ×2 (04:00→12:24)
[2022-12-27] MEDS: Sodium Chloride 0.9% 10 ML Syringe FLUSH PRN ×2 (04:10→13:24)
[2022-12-27 06:59] LABS: BASOPHILS ABSOLUTE AUTO 0.1 x10-3/uL (0.0-0.3); BASOPHILS PERCENT AUTO 1.1 % (0.3-3.8); EOSINOPHILS ABSOLUTE AUTO 0.1 x10-3/uL (0.0-0.6); EOSINOPHILS PERCENT AUTO 1.2 % (0.1-6.8); HEMATOCRIT 26.8 % (38.3-50.1); HEMOGLOBIN 8.9 g/dL (12.9-17.7); LYMPHOCYTES ABSOLUTE AUTO 0.6 x10-3/uL (0.5-4.5); LYMPHOCYTES PERCENT AUTO 7.3 % (15.8-45.3); MEAN CORPUSCULAR HEMOGLOBIN 29.3 pg (27.0-33.3); MEAN CORPUSCULAR HGB CONC 33.1 g/dL (28.7-35.3); MEAN CORPUSCULAR VOLUME 88.7 fL (80.8-98.7); MEAN PLATELET VOLUME 6.7 fL (6.7-11.0); MONOCYTES ABSOLUTE AUTO 0.6 x10-3/uL (0.0-1.2); MONOCYTES PERCENT AUTO 7.7 % (5.5-15.2); NEUTROPHILS ABSOLUTE AUTO 6.8 x10-3/uL (1.7-6.9); NEUTROPHILS PERCENT AUTO 82.7 % (40.3-71.8); PLATELET COUNT,PLT 502 x10(3)uL (117-477); RED BLOOD CELL COUNT 3.02 x10(6)uL (3.90-5.90); RED CELL DISTRIBUTION WIDTH 14.5 % (12.4-15.0); WHITE BLOOD CELL COUNT,WBC 8.3 x10-3/uL (3.2-10.1)
[2022-12-27 07:09] LABS: BLOOD UREA NITROGEN,BUN 16 mg/dL (7-18); CARBON DIOXIDE,CO2 26 mmol/L (21-32); GLUCOSE RANDOM 114 mg/dL (80-116)
[2022-12-27 07:10] LABS: A/G RATIO 0.4; ALANINE AMINOTRANSFERASE,ALT 116 U/L (12-36); ALKALINE PHOSPHATASE 187 IU/L (56-112); ASPARTATE AMNIOTRANSFERASE,AST 63 IU/L (5-25); BILIRUBIN TOTAL 0.5 mg/dL (0.1-1.3); CALCIUM 8.4 mg/dL (8.6-10.2); EST CRCL DRUG DOSING (CG) 61.75 mL/min; ESTIMATED GFR 78 mL/min (>60); MAGNESIUM 1.7 mg/dL (1.8-2.5)
[2022-12-27 07:14] LABS: ALBUMIN 1.7 g/dL (3.2-4.6); CHLORIDE,CL 103 mmol/L (100-110); POTASSIUM,K 2.9 mmol/L (3.5-5.3); SODIUM,NA 140 mmol/L (135-145)
[2022-12-27] MEDS: Metoprolol Tartrate 50 MG Tab PO SCH ×2 (08:13→20:26)
[2022-12-27] MEDS: Amiodarone 200 MG Tab PO SCH ×2 (08:14→20:26)
[2022-12-27] MEDS ORDERED: Magnesium Sulfate/Water 2 GM in Premix Bag 1 BAG IV ONE (08:15)
[2022-12-27] MEDS ORDERED: Potassium Chloride 20 MEQ Tab.ER PO ONE (08:15)
[2022-12-27] MEDS ORDERED: Potassium Chloride 20 MEQ in Premix Bag 1 BAG IV ONE (08:15)
[2022-12-27] MEDS: Furosemide 40 MG/4 ML VIAL IVPUSH SCH (08:16)
[2022-12-27] MEDS: Morphine 2 MG/ML SYRINGE IVPUSH PRN ×3 (09:00→20:32)
[2022-12-27] MEDS ORDERED: Sodium Chloride 0.9% 250 ML IV SCH (09:30)
[2022-12-27] MEDS: Sodium Chloride 0.9% 250 ML IV SCH (09:36)
[2022-12-27] MEDS: Enoxaparin 40 MG/0.4 ML Syringe SUBCUT SCH (10:18)
[2022-12-27] MEDS: Cefepime 2 GM Vial IVPUSH SCH ×2 (10:26→23:25)
[2022-12-27] MEDS: traMADol 50 MG Tab PO PRN ×2 (10:43→17:29)
[2022-12-27 16:31] LABS: APPEARANCE,URINE CLEAR (CLEAR); BACTERIA,URINE FEW (NS); BILIRUBIN,URINE NEGATIVE (NEGATIVE); COLOR,URINE YELLOW (YELLOW); GLUCOSE,URINE NORMAL (NORMAL); KETONES,URINE NEGATIVE (NEGATIVE); LEUKOCYTE ESTERASE,URINE NEGATIVE (NEGATIVE); NITRITE,URINE NEGATIVE (NEGATIVE); OCCULT BLOOD,URINE MODERATE (NEGATIVE); PROTEIN,URINE NEGATIVE (NEGATIVE); SQUAMOUS EPITHELIAL CELLS,UR FEW (NS,R,O); UROBILINOGEN,URINE NORMAL (NEGATIVE); WBC,URINE 0-5 (0-5)
[2022-12-27] MEDS: Heparin Sodium 10 Units/ML 5 ML Syringe FLUSH SCH ×2 (17:15→23:38)
[2022-12-27] MEDS: Heparin Sodium 10 Units/ML 5 ML Syringe FLUSH PRN ×6 (17:15→23:39)
[2022-12-28] MEDS: traMADol 50 MG Tab PO PRN (05:17)
[2022-12-28] MEDS: metroNIDAZOLE/Normal Saline 500 MG in Premix Bag 1 BAG IV SCH ×3 (05:18→20:39)
[2022-12-28] MEDS: Sodium Chloride 0.9% 10 ML Syringe FLUSH PRN ×9 (05:21→22:13)
[2022-12-28] MEDS: Heparin Sodium 10 Units/ML 5 ML Syringe FLUSH PRN ×5 (06:25→14:44)
[2022-12-28 06:48] LABS: BASOPHILS PERCENT AUTO 0.6 % (0.3-3.8); EOSINOPHILS ABSOLUTE AUTO 0.1 x10-3/uL (0.0-0.6); EOSINOPHILS PERCENT AUTO 1.6 % (0.1-6.8); HEMATOCRIT 25.1 % (38.3-50.1); HEMOGLOBIN 8.4 g/dL (12.9-17.7); LYMPHOCYTES ABSOLUTE AUTO 0.6 x10-3/uL (0.5-4.5); LYMPHOCYTES PERCENT AUTO 6.6 % (15.8-45.3); MEAN CORPUSCULAR HEMOGLOBIN 29.9 pg (27.0-33.3); MEAN CORPUSCULAR HGB CONC 33.6 g/dL (28.7-35.3); MEAN PLATELET VOLUME 6.4 fL (6.7-11.0); MONOCYTES ABSOLUTE AUTO 0.8 x10-3/uL (0.0-1.2); NEUTROPHILS ABSOLUTE AUTO 6.9 x10-3/uL (1.7-6.9); NEUTROPHILS PERCENT AUTO 82.2 % (40.3-71.8); PLATELET COUNT,PLT 503 x10(3)uL (117-477); RED BLOOD CELL COUNT 2.82 x10(6)uL (3.90-5.90); RED CELL DISTRIBUTION WIDTH 14.4 % (12.4-15.0); WHITE BLOOD CELL COUNT,WBC 8.4 x10-3/uL (3.2-10.1)
[2022-12-28] MEDS: Heparin Sodium 10 Units/ML 5 ML Syringe FLUSH SCH ×6 (06:59→22:14)
[2022-12-28 07:01] LABS: A/G RATIO 0.4; ALANINE AMINOTRANSFERASE,ALT 80 U/L (12-36); ALKALINE PHOSPHATASE 156 IU/L (56-112); ASPARTATE AMNIOTRANSFERASE,AST 33 IU/L (5-25); BILIRUBIN TOTAL 0.5 mg/dL (0.1-1.3); BLOOD UREA NITROGEN,BUN 17 mg/dL (7-18); CALCIUM 8.4 mg/dL (8.6-10.2); CARBON DIOXIDE,CO2 29 mmol/L (21-32); CHLORIDE,CL 101 mmol/L (100-110); EST CRCL DRUG DOSING (CG) 61.75 mL/min; ESTIMATED GFR 78 mL/min (>60); GLUCOSE RANDOM 123 mg/dL (80-116); MAGNESIUM 1.6 mg/dL (1.8-2.5); POTASSIUM,K 2.9 mmol/L (3.5-5.3); PROTEIN TOTAL,TP 5.7 g/dL (6.0-8.0); SODIUM,NA 137 mmol/L (135-145)
[2022-12-28 07:04] LABS: INR 1.18 (1.00-1.24); PTT,PARTIAL THROMBOPLSTIN TIME 30.8 SECONDS (24.4-33.2)
[2022-12-28 07:08] LABS: ALBUMIN 1.7 g/dL (3.2-4.6)
[2022-12-28] MEDS ORDERED: Magnesium Sulfate/Water 4 GM in Premix Bag 1 BAG IV ONE (08:29)
[2022-12-28] MEDS: Sodium Chloride 0.9% 250 ML IV SCH (08:58)
[2022-12-28] MEDS: Potassium Chloride 100 ML IV SCH ×2 (08:58→11:14)
[2022-12-28] MEDS ORDERED: Potassium Chloride 40 MEQ/20 ML SDV IV ONE (09:00)
[2022-12-28] MEDS: Metoprolol Tartrate 50 MG Tab PO SCH ×2 (09:12→20:34)
[2022-12-28] MEDS: Amiodarone 200 MG Tab PO SCH ×2 (09:16→20:33)
[2022-12-28] MEDS: Furosemide 40 MG/4 ML VIAL IVPUSH SCH (09:17)
[2022-12-28] MEDS: Enoxaparin 40 MG/0.4 ML Syringe SUBCUT SCH (09:31)
[2022-12-28] MEDS: Cefepime 2 GM Vial IVPUSH SCH ×2 (09:35→22:08)
[2022-12-28] MEDS: Morphine 2 MG/ML SYRINGE IVPUSH PRN ×3 (11:21→20:39)
[2022-12-29] MEDS: metroNIDAZOLE/Normal Saline 500 MG in Premix Bag 1 BAG IV SCH ×3 (05:16→20:00)
[2022-12-29] MEDS: Sodium Chloride 0.9% 10 ML Syringe FLUSH PRN ×5 (06:47→21:43)
[2022-12-29] MEDS: Heparin Sodium 10 Units/ML 5 ML Syringe FLUSH SCH ×6 (06:48→21:43)
[2022-12-29 06:51] LABS: BASOPHILS ABSOLUTE AUTO 0.1 x10-3/uL (0.0-0.3); BASOPHILS PERCENT AUTO 0.7 % (0.3-3.8); EOSINOPHILS ABSOLUTE AUTO 0.1 x10-3/uL (0.0-0.6); EOSINOPHILS PERCENT AUTO 1.7 % (0.1-6.8); HEMATOCRIT 25.4 % (38.3-50.1); HEMOGLOBIN 8.6 g/dL (12.9-17.7); LYMPHOCYTES ABSOLUTE AUTO 0.6 x10-3/uL (0.5-4.5); LYMPHOCYTES PERCENT AUTO 8.7 % (15.8-45.3); MEAN CORPUSCULAR HEMOGLOBIN 29.9 pg (27.0-33.3); MEAN CORPUSCULAR HGB CONC 33.8 g/dL (28.7-35.3); MEAN CORPUSCULAR VOLUME 88.3 fL (80.8-98.7); MEAN PLATELET VOLUME 6.2 fL (6.7-11.0); MONOCYTES ABSOLUTE AUTO 0.6 x10-3/uL (0.0-1.2); MONOCYTES PERCENT AUTO 8.3 % (5.5-15.2); NEUTROPHILS ABSOLUTE AUTO 5.6 x10-3/uL (1.7-6.9); NEUTROPHILS PERCENT AUTO 80.6 % (40.3-71.8); PLATELET COUNT,PLT 502 x10(3)uL (117-477); RED BLOOD CELL COUNT 2.87 x10(6)uL (3.90-5.90); RED CELL DISTRIBUTION WIDTH 14.4 % (12.4-15.0); WHITE BLOOD CELL COUNT,WBC 6.9 x10-3/uL (3.2-10.1)
[2022-12-29 07:00] LABS: A/G RATIO 0.4; ALANINE AMINOTRANSFERASE,ALT 60 U/L (12-36); ALKALINE PHOSPHATASE 139 IU/L (56-112); ASPARTATE AMNIOTRANSFERASE,AST 28 IU/L (5-25); BILIRUBIN TOTAL 0.4 mg/dL (0.1-1.3); BLOOD UREA NITROGEN,BUN 15 mg/dL (7-18); BUN/CREATININE RATIO 13.6 (9-20); CALCIUM 8.2 mg/dL (8.6-10.2); CARBON DIOXIDE,CO2 29 mmol/L (21-32); CHLORIDE,CL 102 mmol/L (100-110); CREATININE 1.1 mg/dL (0.70-1.30); EST CRCL DRUG DOSING (CG) 56.14 mL/min; ESTIMATED GFR 70 mL/min (>60); GLUCOSE RANDOM 125 mg/dL (80-116); MAGNESIUM 1.7 mg/dL (1.8-2.5); PROTEIN TOTAL,TP 5.7 g/dL (6.0-8.0); SODIUM,NA 137 mmol/L (135-145)
[2022-12-29 07:04] LABS: ALBUMIN 1.6 g/dL (3.2-4.6); POTASSIUM,K 2.8 mmol/L (3.5-5.3)
[2022-12-29] MEDS: Metoprolol Tartrate 50 MG Tab PO SCH ×2 (07:30→19:43)
[2022-12-29] MEDS: Furosemide 40 MG/4 ML VIAL IVPUSH SCH ×2 (08:41→13:40)
[2022-12-29] MEDS: Amiodarone 200 MG Tab PO SCH ×2 (08:41→19:59)
[2022-12-29] MEDS: Cefepime 2 GM Vial IVPUSH SCH ×2 (09:14→21:38)
[2022-12-29] MEDS: Enoxaparin 40 MG/0.4 ML Syringe SUBCUT SCH (09:23)
[2022-12-29] MEDS: Potassium Chloride 20 MEQ Tab.ER PO SCH ×2 (10:31→20:00)
[2022-12-29] MEDS: traMADol 50 MG Tab PO PRN (11:22)
[2022-12-29] MEDS: Acetaminophen 325 MG Tab PO SCH ×3 (11:26→19:59)
[2022-12-29] MEDS: Saccharomyces Boulardii (Probiotic) 250 MG Cap PO SCH (20:00)
[2022-12-30] MEDS: metroNIDAZOLE/Normal Saline 500 MG in Premix Bag 1 BAG IV SCH ×3 (04:25→20:00)
[2022-12-30] MEDS: Sodium Chloride 0.9% 10 ML Syringe FLUSH PRN ×2 (05:34→21:14)
[2022-12-30] MEDS: Heparin Sodium 10 Units/ML 5 ML Syringe FLUSH SCH ×8 (05:35→21:14)
[2022-12-30 06:36] LABS: BASOPHILS PERCENT AUTO 0.7 % (0.3-3.8); EOSINOPHILS ABSOLUTE AUTO 0.1 x10-3/uL (0.0-0.6); EOSINOPHILS PERCENT AUTO 2.3 % (0.1-6.8); HEMATOCRIT 25.3 % (38.3-50.1); HEMOGLOBIN 8.5 g/dL (12.9-17.7); LYMPHOCYTES ABSOLUTE AUTO 0.7 x10-3/uL (0.5-4.5); LYMPHOCYTES PERCENT AUTO 10.5 % (15.8-45.3); MEAN CORPUSCULAR HEMOGLOBIN 29.6 pg (27.0-33.3); MEAN CORPUSCULAR HGB CONC 33.7 g/dL (28.7-35.3); MEAN CORPUSCULAR VOLUME 87.7 fL (80.8-98.7); MEAN PLATELET VOLUME 6.1 fL (6.7-11.0); MONOCYTES ABSOLUTE AUTO 0.6 x10-3/uL (0.0-1.2); NEUTROPHILS ABSOLUTE AUTO 4.9 x10-3/uL (1.7-6.9); NEUTROPHILS PERCENT AUTO 77.5 % (40.3-71.8); PLATELET COUNT,PLT 510 x10(3)uL (117-477); RED BLOOD CELL COUNT 2.89 x10(6)uL (3.90-5.90); RED CELL DISTRIBUTION WIDTH 14.7 % (12.4-15.0); WHITE BLOOD CELL COUNT,WBC 6.3 x10-3/uL (3.2-10.1)
[2022-12-30 06:41] LABS: BLOOD UREA NITROGEN,BUN 15 mg/dL (7-18); BUN/CREATININE RATIO 13.6 (9-20); CALCIUM 8.3 mg/dL (8.6-10.2); CARBON DIOXIDE,CO2 29 mmol/L (21-32); CHLORIDE,CL 102 mmol/L (100-110); CREATININE 1.1 mg/dL (0.70-1.30); EST CRCL DRUG DOSING (CG) 56.14 mL/min; ESTIMATED GFR 70 mL/min (>60); GLUCOSE RANDOM 121 mg/dL (80-116); SODIUM,NA 139 mmol/L (135-145)
[2022-12-30 07:02] LABS: C-REACTIVE PROTEIN 10.11 mg/dL (<0.33)
[2022-12-30] MEDS: Furosemide 40 MG/4 ML VIAL IVPUSH SCH ×2 (09:22→14:19)
[2022-12-30] MEDS: Potassium Chloride 20 MEQ Tab.ER PO SCH ×2 (09:23→20:00)
[2022-12-30] MEDS: Metoprolol Tartrate 50 MG Tab PO SCH ×2 (09:23→19:34)
[2022-12-30] MEDS: Acetaminophen 325 MG Tab PO SCH ×3 (09:23→20:00)
[2022-12-30] MEDS: Amiodarone 200 MG Tab PO SCH ×2 (09:24→19:59)
[2022-12-30] MEDS: Saccharomyces Boulardii (Probiotic) 250 MG Cap PO SCH ×2 (09:25→20:00)
[2022-12-30] MEDS: Enoxaparin 40 MG/0.4 ML Syringe SUBCUT SCH (09:28)
[2022-12-30] MEDS: Cefepime 2 GM Vial IVPUSH SCH ×2 (09:30→21:09)
[2022-12-30] MEDS: Simethicone 80 MG Tab.Chew PO PRN (13:25)
[2022-12-30] MEDS: traMADol 50 MG Tab PO PRN (19:34)
[2022-12-31] MEDS: metroNIDAZOLE/Normal Saline 500 MG in Premix Bag 1 BAG IV SCH ×3 (05:00→20:17)
[2022-12-31] MEDS: Sodium Chloride 0.9% 10 ML Syringe FLUSH PRN ×10 (05:07→14:00)
[2022-12-31] MEDS: Heparin Sodium 10 Units/ML 5 ML Syringe FLUSH SCH ×6 (06:08→21:29)
[2022-12-31 07:17] LABS: BASOPHILS ABSOLUTE AUTO 0.1 x10-3/uL (0.0-0.3); EOSINOPHILS ABSOLUTE AUTO 0.2 x10-3/uL (0.0-0.6); EOSINOPHILS PERCENT AUTO 3.1 % (0.1-6.8); HEMATOCRIT 25.1 % (38.3-50.1); HEMOGLOBIN 8.4 g/dL (12.9-17.7); LYMPHOCYTES ABSOLUTE AUTO 0.7 x10-3/uL (0.5-4.5); LYMPHOCYTES PERCENT AUTO 13.2 % (15.8-45.3); MEAN CORPUSCULAR HEMOGLOBIN 29.7 pg (27.0-33.3); MEAN CORPUSCULAR HGB CONC 33.6 g/dL (28.7-35.3); MEAN CORPUSCULAR VOLUME 88.5 fL (80.8-98.7); MEAN PLATELET VOLUME 6.2 fL (6.7-11.0); MONOCYTES ABSOLUTE AUTO 0.5 x10-3/uL (0.0-1.2); MONOCYTES PERCENT AUTO 9.7 % (5.5-15.2); NEUTROPHILS ABSOLUTE AUTO 4.1 x10-3/uL (1.7-6.9); PLATELET COUNT,PLT 495 x10(3)uL (117-477); RED BLOOD CELL COUNT 2.84 x10(6)uL (3.90-5.90); RED CELL DISTRIBUTION WIDTH 14.7 % (12.4-15.0); WHITE BLOOD CELL COUNT,WBC 5.6 x10-3/uL (3.2-10.1)
[2022-12-31 07:23] LABS: BLOOD UREA NITROGEN,BUN 14 mg/dL (7-18); BUN/CREATININE RATIO 12.7 (9-20); CALCIUM 8.4 mg/dL (8.6-10.2); CARBON DIOXIDE,CO2 31 mmol/L (21-32); CHLORIDE,CL 104 mmol/L (100-110); CREATININE 1.1 mg/dL (0.70-1.30); EST CRCL DRUG DOSING (CG) 56.14 mL/min; ESTIMATED GFR 70 mL/min (>60); GLUCOSE RANDOM 120 mg/dL (80-116); SODIUM,NA 140 mmol/L (135-145)
[2022-12-31 07:35] LABS: C-REACTIVE PROTEIN 6.77 mg/dL (<0.33)
[2022-12-31] MEDS: Furosemide 40 MG/4 ML VIAL IVPUSH SCH ×2 (09:03→13:54)
[2022-12-31] MEDS: Acetaminophen 325 MG Tab PO SCH ×3 (09:05→20:19)
[2022-12-31] MEDS: Saccharomyces Boulardii (Probiotic) 250 MG Cap PO SCH ×2 (09:05→20:19)
[2022-12-31] MEDS: Potassium Chloride 20 MEQ Tab.ER PO SCH ×2 (09:05→20:19)
[2022-12-31] MEDS: Amiodarone 200 MG Tab PO SCH ×2 (09:05→20:19)
[2022-12-31] MEDS: Cefepime 2 GM Vial IVPUSH SCH ×2 (09:17→21:27)
[2022-12-31] MEDS: Enoxaparin 40 MG/0.4 ML Syringe SUBCUT SCH (09:45)
[2022-12-31] MEDS: Simethicone 80 MG Tab.Chew PO PRN (12:42)
[2022-12-31] MEDS: Metoprolol Succinate 50 MG Tab.ER PO SCH (20:24)
[2022-12-31] MEDS: traMADol 50 MG Tab PO PRN (20:34)
[2023-01-01] MEDS: metroNIDAZOLE/Normal Saline 500 MG in Premix Bag 1 BAG IV SCH ×3 (04:50→20:52)
[2023-01-01] MEDS: Sodium Chloride 0.9% 10 ML Syringe FLUSH PRN ×6 (04:50→22:25)
[2023-01-01] MEDS: Pantoprazole 40 MG Tab.CR PO SCH (05:08)
[2023-01-01] MEDS: Heparin Sodium 10 Units/ML 5 ML Syringe FLUSH SCH ×6 (06:23→22:26)
[2023-01-01 06:45] LABS: A/G RATIO 0.5; ALANINE AMINOTRANSFERASE,ALT 37 U/L (12-36); ALBUMIN 1.9 g/dL (3.2-4.6); ALKALINE PHOSPHATASE 115 IU/L (56-112); ASPARTATE AMNIOTRANSFERASE,AST 21 IU/L (5-25); BILIRUBIN TOTAL 0.3 mg/dL (0.1-1.3); BLOOD UREA NITROGEN,BUN 15 mg/dL (7-18); BUN/CREATININE RATIO 13.6 (9-20); CALCIUM 8.3 mg/dL (8.6-10.2); CARBON DIOXIDE,CO2 31 mmol/L (21-32); CHLORIDE,CL 103 mmol/L (100-110); CREATININE 1.1 mg/dL (0.70-1.30); EST CRCL DRUG DOSING (CG) 56.14 mL/min; ESTIMATED GFR 70 mL/min (>60); GLUCOSE RANDOM 127 mg/dL (80-116); MAGNESIUM 1.4 mg/dL (1.8-2.5); POTASSIUM,K 3.1 mmol/L (3.5-5.3); PROTEIN TOTAL,TP 5.9 g/dL (6.0-8.0); SODIUM,NA 140 mmol/L (135-145)
[2023-01-01] MEDS: Metoprolol Tartrate 50 MG Tab PO SCH (07:09)
[2023-01-01] MEDS: Potassium Chloride 20 MEQ Tab.ER PO SCH ×2 (09:07→20:59)
[2023-01-01] MEDS: Acetaminophen 325 MG Tab PO SCH ×3 (09:07→21:01)
[2023-01-01] MEDS: Saccharomyces Boulardii (Probiotic) 250 MG Cap PO SCH ×2 (09:08→20:59)
[2023-01-01] MEDS: Amiodarone 200 MG Tab PO SCH ×2 (09:08→20:58)
[2023-01-01] MEDS: Cefepime 2 GM Vial IVPUSH SCH ×2 (09:08→22:20)
[2023-01-01] MEDS: Enoxaparin 40 MG/0.4 ML Syringe SUBCUT SCH (09:08)
[2023-01-01] MEDS: Furosemide 20 MG/2 ML VIAL IVPUSH SCH ×2 (09:36→14:28)
[2023-01-01] MEDS: traMADol 50 MG Tab PO PRN ×2 (10:27→16:35)
[2023-01-01] MEDS: Furosemide 40 MG/4 ML VIAL IVPUSH SCH (11:20)
[2023-01-01] MEDS: Heparin Sodium 10 Units/ML 5 ML Syringe FLUSH PRN (14:36)
[2023-01-01] MEDS: Doxepin 25 MG Cap PO SCH (21:00)
[2023-01-01] MEDS: Metoprolol Succinate 50 MG Tab.ER PO SCH (21:00)
[2023-01-02] MEDS: Sodium Chloride 0.9% 10 ML Syringe FLUSH PRN ×6 (05:10→22:25)
[2023-01-02] MEDS: metroNIDAZOLE/Normal Saline 500 MG in Premix Bag 1 BAG IV SCH ×3 (05:14→21:07)
[2023-01-02] MEDS: Pantoprazole 40 MG Tab.CR PO SCH (06:02)
[2023-01-02] MEDS: Heparin Sodium 10 Units/ML 5 ML Syringe FLUSH SCH ×6 (06:13→22:11)
[2023-01-02 07:09] LABS: A/G RATIO 0.5; ALANINE AMINOTRANSFERASE,ALT 31 U/L (12-36); ALBUMIN 1.9 g/dL (3.2-4.6); ALKALINE PHOSPHATASE 114 IU/L (56-112); ASPARTATE AMNIOTRANSFERASE,AST 18 IU/L (5-25); BILIRUBIN TOTAL 0.3 mg/dL (0.1-1.3); BLOOD UREA NITROGEN,BUN 13 mg/dL (7-18); BUN/CREATININE RATIO 10.8 (9-20); CALCIUM 8.5 mg/dL (8.6-10.2); CARBON DIOXIDE,CO2 32 mmol/L (21-32); CHLORIDE,CL 106 mmol/L (100-110); CREATININE 1.2 mg/dL (0.70-1.30); EST CRCL DRUG DOSING (CG) 51.46 mL/min; ESTIMATED GFR 63 mL/min (>60); GLUCOSE RANDOM 121 mg/dL (80-116); POTASSIUM,K 3.7 mmol/L (3.5-5.3); SODIUM,NA 141 mmol/L (135-145)
[2023-01-02] MEDS: Furosemide 20 MG/2 ML VIAL IVPUSH SCH (08:20)
[2023-01-02] MEDS: Heparin Sodium 10 Units/ML 5 ML Syringe FLUSH PRN ×3 (08:23→22:26)
[2023-01-02] MEDS: Acetaminophen 325 MG Tab PO SCH ×3 (08:58→20:05)
[2023-01-02] MEDS: Amiodarone 200 MG Tab PO SCH ×2 (08:58→20:02)
[2023-01-02] MEDS: Saccharomyces Boulardii (Probiotic) 250 MG Cap PO SCH ×2 (08:59→20:03)
[2023-01-02] MEDS: Potassium Chloride 20 MEQ Tab.ER PO SCH ×2 (08:59→20:03)
[2023-01-02] MEDS: Cefepime 2 GM Vial IVPUSH SCH ×2 (09:42→22:17)
[2023-01-02] MEDS: Enoxaparin 40 MG/0.4 ML Syringe SUBCUT SCH (09:42)
[2023-01-02] MEDS: traMADol 50 MG Tab PO PRN ×2 (09:50→16:24)
[2023-01-02] MEDS: Furosemide 20 MG Tab PO SCH (14:48)
[2023-01-02] MEDS: Doxepin 25 MG Cap PO SCH (20:03)
[2023-01-02] MEDS: Metoprolol Succinate 50 MG Tab.ER PO SCH (20:06)
[2023-01-03] MEDS: metroNIDAZOLE/Normal Saline 500 MG in Premix Bag 1 BAG IV SCH ×3 (04:59→20:48)
[2023-01-03] MEDS: Sodium Chloride 0.9% 10 ML Syringe FLUSH PRN ×4 (06:02→21:55)
[2023-01-03] MEDS: Heparin Sodium 10 Units/ML 5 ML Syringe FLUSH SCH ×6 (06:02→21:56)
[2023-01-03] MEDS: Pantoprazole 40 MG Tab.CR PO SCH (06:28)
[2023-01-03 06:53] LABS: BASOPHILS ABSOLUTE AUTO 0.1 x10-3/uL (0.0-0.3); BASOPHILS PERCENT AUTO 0.9 % (0.3-3.8); EOSINOPHILS ABSOLUTE AUTO 0.2 x10-3/uL (0.0-0.6); EOSINOPHILS PERCENT AUTO 2.8 % (0.1-6.8); HEMATOCRIT 31.7 % (38.3-50.1); HEMOGLOBIN 10.3 g/dL (12.9-17.7); LYMPHOCYTES ABSOLUTE AUTO 1.3 x10-3/uL (0.5-4.5); LYMPHOCYTES PERCENT AUTO 16.7 % (15.8-45.3); MEAN CORPUSCULAR HGB CONC 32.6 g/dL (28.7-35.3); MEAN CORPUSCULAR VOLUME 89.1 fL (80.8-98.7); MEAN PLATELET VOLUME 6.5 fL (6.7-11.0); MONOCYTES ABSOLUTE AUTO 0.7 x10-3/uL (0.0-1.2); MONOCYTES PERCENT AUTO 9.9 % (5.5-15.2); NEUTROPHILS ABSOLUTE AUTO 5.2 x10-3/uL (1.7-6.9); NEUTROPHILS PERCENT AUTO 69.7 % (40.3-71.8); PLATELET COUNT,PLT 545 x10(3)uL (117-477); RED BLOOD CELL COUNT 3.55 x10(6)uL (3.90-5.90); RED CELL DISTRIBUTION WIDTH 14.7 % (12.4-15.0); WHITE BLOOD CELL COUNT,WBC 7.5 x10-3/uL (3.2-10.1)
[2023-01-03 06:59] LABS: BLOOD UREA NITROGEN,BUN 13 mg/dL (7-18); BUN/CREATININE RATIO 10.8 (9-20); CALCIUM 9.2 mg/dL (8.6-10.2); CARBON DIOXIDE,CO2 31 mmol/L (21-32); CHLORIDE,CL 105 mmol/L (100-110); CREATININE 1.2 mg/dL (0.70-1.30); EST CRCL DRUG DOSING (CG) 51.46 mL/min; ESTIMATED GFR 63 mL/min (>60); GLUCOSE RANDOM 125 mg/dL (80-116); POTASSIUM,K 4.3 mmol/L (3.5-5.3); SODIUM,NA 140 mmol/L (135-145)
[2023-01-03] MEDS: Potassium Chloride 20 MEQ Tab.ER PO SCH ×2 (08:02→20:38)
[2023-01-03] MEDS: Saccharomyces Boulardii (Probiotic) 250 MG Cap PO SCH ×2 (08:03→20:38)
[2023-01-03] MEDS: Furosemide 20 MG Tab PO SCH ×2 (08:03→14:15)
[2023-01-03] MEDS: Amiodarone 200 MG Tab PO SCH ×2 (08:04→20:38)
[2023-01-03] MEDS: Acetaminophen 325 MG Tab PO SCH ×3 (08:06→20:40)
[2023-01-03] MEDS: traMADol 50 MG Tab PO PRN (08:14)
[2023-01-03] MEDS: Enoxaparin 40 MG/0.4 ML Syringe SUBCUT SCH (10:41)
[2023-01-03] MEDS: Cefepime 2 GM Vial IVPUSH SCH ×2 (10:41→21:50)
[2023-01-03] MEDS: Doxepin 25 MG Cap PO SCH (20:39)
[2023-01-03] MEDS: Metoprolol Succinate 50 MG Tab.ER PO SCH (20:39)
[2023-01-04] MEDS: Simethicone 80 MG Tab.Chew PO PRN (02:12)
[2023-01-04] MEDS: metroNIDAZOLE/Normal Saline 500 MG in Premix Bag 1 BAG IV SCH ×3 (05:01→21:25)
[2023-01-04] MEDS: Sodium Chloride 0.9% 10 ML Syringe FLUSH PRN ×7 (05:01→21:10)
[2023-01-04] MEDS: Pantoprazole 40 MG Tab.CR PO SCH (06:01)
[2023-01-04] MEDS: Heparin Sodium 10 Units/ML 5 ML Syringe FLUSH SCH ×6 (06:06→22:21)
[2023-01-04] MEDS: Saccharomyces Boulardii (Probiotic) 250 MG Cap PO SCH ×2 (08:13→20:31)
[2023-01-04] MEDS: Amiodarone 200 MG Tab PO SCH (08:14)
[2023-01-04] MEDS: Furosemide 20 MG Tab PO SCH ×2 (08:14→13:40)
[2023-01-04] MEDS: Potassium Chloride 20 MEQ Tab.ER PO SCH ×2 (08:14→20:30)
[2023-01-04] MEDS: Acetaminophen 325 MG Tab PO SCH ×3 (08:15→20:37)
[2023-01-04] MEDS: Enoxaparin 40 MG/0.4 ML Syringe SUBCUT SCH (11:01)
[2023-01-04] MEDS: Cefepime 2 GM Vial IVPUSH SCH ×2 (11:06→21:12)
[2023-01-04] MEDS ORDERED: Melatonin 3 MG Tab PO PRN (11:13)
[2023-01-04] MEDS: Morphine 2 MG/ML SYRINGE IVPUSH PRN (11:19)
[2023-01-04] MEDS: Heparin Sodium 10 Units/ML 5 ML Syringe FLUSH PRN ×2 (11:22→14:31)
[2023-01-04] MEDS: Doxepin 25 MG Cap PO SCH (20:32)
[2023-01-04] MEDS: Metoprolol Succinate 50 MG Tab.ER PO SCH (20:36)
[2023-01-05] MEDS: Sodium Chloride 0.9% 10 ML Syringe FLUSH PRN (04:41)
[2023-01-05] MEDS: metroNIDAZOLE/Normal Saline 500 MG in Premix Bag 1 BAG IV SCH (04:42)
[2023-01-05] MEDS: Pantoprazole 40 MG Tab.CR PO SCH (05:53)
[2023-01-05] MEDS: Heparin Sodium 10 Units/ML 5 ML Syringe FLUSH SCH ×4 (06:01→10:55)
[2023-01-05] MEDS: Furosemide 20 MG Tab PO SCH (07:57)
[2023-01-05] MEDS ORDERED: Amiodarone 200 MG Tab PO SCH (09:00)
[2023-01-05] MEDS: Saccharomyces Boulardii (Probiotic) 250 MG Cap PO SCH (09:25)
[2023-01-05] MEDS: Acetaminophen 325 MG Tab PO SCH (09:25)
[2023-01-05] MEDS: Cefepime 2 GM Vial IVPUSH SCH (10:43)
[2023-01-05] MEDS: Enoxaparin 40 MG/0.4 ML Syringe SUBCUT SCH (10:43)
[2023-01-05] MEDS ORDERED: Metoprolol Succinate 25 MG Tab.ER PO SCH (21:00)
[2023-01-05] MEDS ORDERED: Tamsulosin 0.4 MG Cap.ER PO SCH (21:00)
[2023-01-06] MEDS ORDERED: Furosemide 20 MG Tab PO SCH (09:00)
== END 2023-01-05 12:30 | disposition swing bed (61) | DRG 871 ==
LOC: FB.MS 12:44 → UNDOADMIN 12:44 → FB.MS 13:17
PROVIDERS: ADMIT Family Medicine; ATTEND Family Medicine
PROC: 3E03329 Introduction of Other Anti-infective into Peripheral Vein, Percutaneous Approach (ICD-10-PCS; 2022-12-25)
PROC: 05H533Z Insertion of Infusion Device into Right Subclavian Vein, Percutaneous Approach (ICD-10-PCS; principal; 2022-12-27)
DX: A41.9 Sepsis, unspecified organism (principal); J96.01 Acute respiratory failure with hypoxia; L03.115 Cellulitis of right lower limb; L03.315 Cellulitis of perineum; N17.9 Acute kidney failure, unspecified; E87.20 Acidosis, unspecified; L03.317 Cellulitis of buttock; G72.81 Critical illness myopathy; E44.0 Moderate protein-calorie malnutrition; Z66 Do not resuscitate; I48.91 Unspecified atrial fibrillation; E83.42 Hypomagnesemia; D64.9 Anemia, unspecified; G89.29 Other chronic pain; E66.9 Obesity, unspecified; E87.6 Hypokalemia; I10 Essential (primary) hypertension; G47.00 Insomnia, unspecified; N40.0 Benign prostatic hyperplasia without lower urinary tract symptoms; I25.10 Atherosclerotic heart disease of native coronary artery without angina pectoris; E78.00 Pure hypercholesterolemia, unspecified; M51.37 Other intervertebral disc degeneration, lumbosacral region; J44.9 Chronic obstructive pulmonary disease, unspecified; K21.9 Gastro-esophageal reflux disease without esophagitis; F17.210 Nicotine dependence, cigarettes, uncomplicated; M19.90 Unspecified osteoarthritis, unspecified site; E11.9 Type 2 diabetes mellitus without complications; M54.50 Low back pain, unspecified; R65.20 Severe sepsis without septic shock; I95.2 Hypotension due to drugs; T50.995A Adverse effect of other drugs, medicaments and biological substances, initial encounter; Z98.890 Other specified postprocedural states; Z98.49 Cataract extraction status, unspecified eye; Z88.2 Allergy status to sulfonamides; Z88.8 Allergy status to other drugs, medicaments and biological substances; Z79.899 Other long term (current) drug therapy; Z79.82 Long term (current) use of aspirin; Z86.718 Personal history of other venous thrombosis and embolism; Z79.84 Long term (current) use of oral hypoglycemic drugs; Z68.30 Body mass index [BMI] 30.0-30.9, adult
CPT/HCPCS: 36415; 71045; 72195; 73502-RT; 80048; 80053; 81001; 82947; 83605; 83735; 83880; 85025; 85610; 85730; 86140; 87040; 87230; 93306; 94150; 97112-GP; 97116-GP; 97162-GP; 97165-GO; 97530-GO; 97530-GP; 97535-GO; 99223; 99232; 99233; 99239; A9270-GY; J0282; J0692; J1642; J1650; J1940; J2270; J3475; J3480; J3490; J7050; J7120

== ENCOUNTER 2023-01-04 13:26 | Inpatient (IN) | payer MEDICARE ==
[2023-01-05] MEDS ORDERED: Nitroglycerin 0.4 MG Tab.SL SL PRN (12:56)
[2023-01-05] MEDS ORDERED: Albuterol 8 GM Inhaler INH PRN (12:56)
[2023-01-05] MEDS ORDERED: Heparin Sodium 10 Units/ML 5 ML Syringe FLUSH PRN (13:54)
[2023-01-05] MEDS: metroNIDAZOLE/Normal Saline 500 MG in Premix Bag 1 BAG IV SCH ×2 (13:56→20:58)
[2023-01-05] MEDS: traMADol 50 MG Tab PO PRN (14:08)
[2023-01-05] MEDS: Heparin Sodium 10 Units/ML 5 ML Syringe FLUSH SCH ×2 (15:07→22:22)
[2023-01-05] MEDS: metFORMIN 500 MG Tab PO SCH (18:11)
[2023-01-05] MEDS: Montelukast 10 MG Tab PO SCH (20:44)
[2023-01-05] MEDS: Doxepin 25 MG Cap PO SCH (20:44)
[2023-01-05] MEDS: Saccharomyces Boulardii (Probiotic) 250 MG Cap PO SCH (20:44)
[2023-01-05] MEDS: Metoprolol Succinate 25 MG Tab.ER PO SCH (20:45)
[2023-01-05] MEDS ORDERED: CILOSTAZOL 50 MG PO SCH (21:00)
[2023-01-05] MEDS: Acetaminophen 325 MG Tab PO PRN (21:05)
[2023-01-05] MEDS: Sodium Chloride 0.9% 10 ML Syringe FLUSH PRN ×2 (22:05→22:21)
[2023-01-05] MEDS: Cefepime 2 GM Vial IVPUSH SCH (22:16)
[2023-01-05 22:26] LABS: BILIRUBIN,URINE NEGATIVE (NEGATIVE); GLUCOSE,URINE NORMAL (NORMAL); KETONES,URINE NEGATIVE (NEGATIVE); LEUKOCYTE ESTERASE,URINE NEGATIVE (NEGATIVE); NITRITE,URINE NEGATIVE (NEGATIVE); OCCULT BLOOD,URINE MODERATE (NEGATIVE); PROTEIN,URINE TRACE mg/dL (NEGATIVE); UROBILINOGEN,URINE NORMAL (NEGATIVE)
[2023-01-05 22:27] LABS: APPEARANCE,URINE CLEAR (CLEAR); BACTERIA,URINE FEW (NS); COLOR,URINE YELLOW (YELLOW); SQUAMOUS EPITHELIAL CELLS,UR FEW (NS,R,O); WBC,URINE 0-5 (0-5)
[2023-01-05] MEDS: Melatonin 3 MG Tab PO PRN (23:24)
[2023-01-06] MEDS: Simethicone 80 MG Tab.Chew PO PRN ×2 (00:26→19:15)
[2023-01-06] MEDS: traMADol 50 MG Tab PO PRN ×2 (03:21→20:51)
[2023-01-06] MEDS: Sodium Chloride 0.9% 10 ML Syringe FLUSH PRN ×6 (05:30→22:06)
[2023-01-06] MEDS: Heparin Sodium 10 Units/ML 5 ML Syringe FLUSH SCH ×6 (05:30→22:07)
[2023-01-06] MEDS: metroNIDAZOLE/Normal Saline 500 MG in Premix Bag 1 BAG IV SCH ×3 (05:37→21:04)
[2023-01-06] MEDS: Pantoprazole 40 MG Tab.CR PO SCH (05:40)
[2023-01-06 05:47] LABS: BASOPHILS ABSOLUTE AUTO 0.1 x10-3/uL (0.0-0.3); BASOPHILS PERCENT AUTO 1.2 % (0.3-3.8); EOSINOPHILS ABSOLUTE AUTO 0.2 x10-3/uL (0.0-0.6); EOSINOPHILS PERCENT AUTO 2.9 % (0.1-6.8); HEMATOCRIT 29.5 % (38.3-50.1); HEMOGLOBIN 9.8 g/dL (12.9-17.7); LYMPHOCYTES ABSOLUTE AUTO 1.1 x10-3/uL (0.5-4.5); LYMPHOCYTES PERCENT AUTO 17.2 % (15.8-45.3); MEAN CORPUSCULAR HEMOGLOBIN 29.5 pg (27.0-33.3); MEAN CORPUSCULAR HGB CONC 33.2 g/dL (28.7-35.3); MEAN CORPUSCULAR VOLUME 89.1 fL (80.8-98.7); MEAN PLATELET VOLUME 6.6 fL (6.7-11.0); MONOCYTES ABSOLUTE AUTO 0.8 x10-3/uL (0.0-1.2); MONOCYTES PERCENT AUTO 12.5 % (5.5-15.2); NEUTROPHILS ABSOLUTE AUTO 4.2 x10-3/uL (1.7-6.9); NEUTROPHILS PERCENT AUTO 66.2 % (40.3-71.8); PLATELET COUNT,PLT 385 x10(3)uL (117-477); RED BLOOD CELL COUNT 3.32 x10(6)uL (3.90-5.90); RED CELL DISTRIBUTION WIDTH 15.3 % (12.4-15.0); WHITE BLOOD CELL COUNT,WBC 6.3 x10-3/uL (3.2-10.1)
[2023-01-06 06:06] LABS: A/G RATIO 0.5; ALANINE AMINOTRANSFERASE,ALT 26 U/L (12-36); ALBUMIN 2.3 g/dL (3.2-4.6); ALKALINE PHOSPHATASE 114 IU/L (56-112); ASPARTATE AMNIOTRANSFERASE,AST 22 IU/L (5-25); BILIRUBIN TOTAL 0.3 mg/dL (0.1-1.3); BLOOD UREA NITROGEN,BUN 13 mg/dL (7-18); CALCIUM 8.9 mg/dL (8.6-10.2); CARBON DIOXIDE,CO2 30 mmol/L (21-32); CHLORIDE,CL 105 mmol/L (100-110); CREATININE 1.3 mg/dL (0.70-1.30); ESTIMATED GFR 57 mL/min (>60); GLUCOSE RANDOM 119 mg/dL (80-116); PROTEIN TOTAL,TP 6.6 g/dL (6.0-8.0); SODIUM,NA 141 mmol/L (135-145)
[2023-01-06] MEDS: metFORMIN 500 MG Tab PO SCH ×2 (07:47→17:32)
[2023-01-06] MEDS ORDERED: Lisinopril 10 MG Tab PO SCH (09:00)
[2023-01-06] MEDS ORDERED: Primidone 50 MG Tab PO SCH (09:00)
[2023-01-06] MEDS: Amiodarone 200 MG Tab PO SCH (09:51)
[2023-01-06] MEDS: Rosuvastatin 10 MG Tab PO SCH (09:51)
[2023-01-06] MEDS: Furosemide 20 MG Tab PO SCH (09:52)
[2023-01-06] MEDS: Saccharomyces Boulardii (Probiotic) 250 MG Cap PO SCH ×2 (09:52→20:50)
[2023-01-06] MEDS: Tamsulosin 0.4 MG Cap.ER PO SCH (09:52)
[2023-01-06] MEDS: Aspirin 81 MG Tab.EC PO SCH (09:52)
[2023-01-06] MEDS: Calcitriol 0.25 MCG Cap PO SCH (09:52)
[2023-01-06] MEDS: Ergocalciferol (Vitamin D2) 1.25 MG Cap PO SCH (09:53)
[2023-01-06] MEDS: Enoxaparin 40 MG/0.4 ML Syringe SUBCUT SCH (09:58)
[2023-01-06] MEDS: Cefepime 2 GM Vial IVPUSH SCH ×2 (09:58→22:00)
[2023-01-06] MEDS: Acetaminophen 325 MG Tab PO PRN (17:30)
[2023-01-06] MEDS: Montelukast 10 MG Tab PO SCH (20:50)
[2023-01-06] MEDS: Doxepin 25 MG Cap PO SCH (20:50)
[2023-01-06] MEDS: Metoprolol Succinate 25 MG Tab.ER PO SCH (20:50)
[2023-01-06] MEDS: Melatonin 3 MG Tab PO PRN (20:51)
[2023-01-07] MEDS: Simethicone 80 MG Tab.Chew PO PRN ×2 (02:00→20:36)
[2023-01-07] MEDS: metroNIDAZOLE/Normal Saline 500 MG in Premix Bag 1 BAG IV SCH ×3 (04:55→20:54)
[2023-01-07] MEDS: Sodium Chloride 0.9% 10 ML Syringe FLUSH PRN ×7 (05:00→21:59)
[2023-01-07] MEDS: Heparin Sodium 10 Units/ML 5 ML Syringe FLUSH SCH ×6 (05:00→21:59)
[2023-01-07] MEDS: Pantoprazole 40 MG Tab.CR PO SCH (05:25)
[2023-01-07] MEDS: traMADol 50 MG Tab PO PRN ×3 (07:14→20:44)
[2023-01-07] MEDS: Tamsulosin 0.4 MG Cap.ER PO SCH (08:30)
[2023-01-07] MEDS: Furosemide 20 MG Tab PO SCH (08:30)
[2023-01-07] MEDS: Amiodarone 200 MG Tab PO SCH (08:30)
[2023-01-07] MEDS: Saccharomyces Boulardii (Probiotic) 250 MG Cap PO SCH ×2 (08:30→20:43)
[2023-01-07] MEDS: Rosuvastatin 10 MG Tab PO SCH (08:30)
[2023-01-07] MEDS: metFORMIN 500 MG Tab PO SCH ×2 (08:30→18:29)
[2023-01-07] MEDS: Calcitriol 0.25 MCG Cap PO SCH (08:30)
[2023-01-07] MEDS: Cefepime 2 GM Vial IVPUSH SCH ×2 (10:09→21:54)
[2023-01-07] MEDS: Enoxaparin 40 MG/0.4 ML Syringe SUBCUT SCH (10:09)
[2023-01-07] MEDS: Metoprolol Succinate 25 MG Tab.ER PO SCH (20:43)
[2023-01-07] MEDS: Doxepin 25 MG Cap PO SCH (20:43)
[2023-01-07] MEDS: Montelukast 10 MG Tab PO SCH (20:43)
[2023-01-07] MEDS: Melatonin 3 MG Tab PO PRN (20:44)
[2023-01-08] MEDS: metroNIDAZOLE/Normal Saline 500 MG in Premix Bag 1 BAG IV SCH ×3 (05:10→20:26)
[2023-01-08] MEDS: Pantoprazole 40 MG Tab.CR PO SCH (05:10)
[2023-01-08] MEDS: Heparin Sodium 10 Units/ML 5 ML Syringe FLUSH SCH ×6 (05:15→21:46)
[2023-01-08] MEDS: Sodium Chloride 0.9% 10 ML Syringe FLUSH PRN ×5 (05:15→21:45)
[2023-01-08] MEDS: metFORMIN 500 MG Tab PO SCH ×2 (08:03→18:42)
[2023-01-08] MEDS: Aspirin 81 MG Tab.EC PO SCH (08:03)
[2023-01-08] MEDS: Rosuvastatin 10 MG Tab PO SCH (08:03)
[2023-01-08] MEDS: Calcitriol 0.25 MCG Cap PO SCH (08:04)
[2023-01-08] MEDS: Furosemide 20 MG Tab PO SCH (08:04)
[2023-01-08] MEDS: Amiodarone 200 MG Tab PO SCH (08:04)
[2023-01-08] MEDS: Saccharomyces Boulardii (Probiotic) 250 MG Cap PO SCH ×2 (08:04→20:20)
[2023-01-08] MEDS: Tamsulosin 0.4 MG Cap.ER PO SCH (08:20)
[2023-01-08] MEDS: Enoxaparin 40 MG/0.4 ML Syringe SUBCUT SCH (11:00)
[2023-01-08] MEDS: Cefepime 2 GM Vial IVPUSH SCH ×2 (11:00→21:47)
[2023-01-08] MEDS: traMADol 50 MG Tab PO PRN (13:05)
[2023-01-08] MEDS: Acetaminophen 500 MG Tab PO SCH ×2 (16:34→20:24)
[2023-01-08] MEDS: Simethicone 80 MG Tab.Chew PO PRN (18:42)
[2023-01-08] MEDS: Melatonin 3 MG Tab PO SCH (20:19)
[2023-01-08] MEDS: Doxepin 25 MG Cap PO SCH (20:20)
[2023-01-08] MEDS: Montelukast 10 MG Tab PO SCH (20:20)
[2023-01-08] MEDS: Metoprolol Succinate 25 MG Tab.ER PO SCH (20:24)
[2023-01-08] MEDS ORDERED: Acetaminophen 325 MG Tab PO SCH (21:00)
[2023-01-09] MEDS: Heparin Sodium 10 Units/ML 5 ML Syringe FLUSH SCH ×3 (05:23→05:24)
[2023-01-09] MEDS: Pantoprazole 40 MG Tab.CR PO SCH (05:26)
[2023-01-09] MEDS: traMADol 50 MG Tab PO PRN ×2 (06:39→21:05)
[2023-01-09] MEDS: metFORMIN 500 MG Tab PO SCH ×2 (07:47→17:23)
[2023-01-09] MEDS: traMADol 50 MG Tab PO SCH (09:53)
[2023-01-09] MEDS: Amiodarone 200 MG Tab PO SCH (09:54)
[2023-01-09] MEDS: Furosemide 20 MG Tab PO SCH (09:54)
[2023-01-09] MEDS: Acetaminophen 500 MG Tab PO SCH ×3 (09:55→21:05)
[2023-01-09] MEDS: Tamsulosin 0.4 MG Cap.ER PO SCH (09:56)
[2023-01-09] MEDS: Calcitriol 0.25 MCG Cap PO SCH (09:56)
[2023-01-09] MEDS: Rosuvastatin 10 MG Tab PO SCH (09:56)
[2023-01-09] MEDS: Enoxaparin 40 MG/0.4 ML Syringe SUBCUT SCH (09:59)
[2023-01-09] MEDS: Montelukast 10 MG Tab PO SCH (21:06)
[2023-01-09] MEDS: Doxepin 25 MG Cap PO SCH (21:06)
[2023-01-09] MEDS: Melatonin 3 MG Tab PO SCH (21:06)
[2023-01-09] MEDS: Metoprolol Succinate 25 MG Tab.ER PO SCH (21:08)
[2023-01-10] MEDS: Pantoprazole 40 MG Tab.CR PO SCH (05:19)
[2023-01-10] MEDS: Heparin Sodium 10 Units/ML 5 ML Syringe FLUSH SCH ×3 (05:20)
[2023-01-10] MEDS: Sodium Chloride 0.9% 10 ML Syringe FLUSH PRN (05:21)
[2023-01-10] MEDS: metFORMIN 500 MG Tab PO SCH ×2 (07:42→17:04)
[2023-01-10] MEDS: Calcitriol 0.25 MCG Cap PO SCH (09:11)
[2023-01-10] MEDS: Tamsulosin 0.4 MG Cap.ER PO SCH (09:11)
[2023-01-10] MEDS: Enoxaparin 40 MG/0.4 ML Syringe SUBCUT SCH (09:11)
[2023-01-10] MEDS: Amiodarone 200 MG Tab PO SCH (09:11)
[2023-01-10] MEDS: Propranolol 60 MG Cap.ER PO SCH (09:11)
[2023-01-10] MEDS: Acetaminophen 500 MG Tab PO SCH ×3 (09:11→20:48)
[2023-01-10] MEDS: Aspirin 81 MG Tab.EC PO SCH (09:11)
[2023-01-10] MEDS: Furosemide 20 MG Tab PO SCH (09:11)
[2023-01-10] MEDS: traMADol 50 MG Tab PO SCH (09:12)
[2023-01-10] MEDS: Rosuvastatin 10 MG Tab PO SCH (09:13)
[2023-01-10] MEDS ORDERED: Tamsulosin 0.4 MG Cap.ER PO ONE (09:15)
[2023-01-10 09:45] LABS: BILIRUBIN,URINE NEGATIVE (NEGATIVE); GLUCOSE,URINE NORMAL (NORMAL); KETONES,URINE NEGATIVE (NEGATIVE); LEUKOCYTE ESTERASE,URINE NEGATIVE (NEGATIVE); NITRITE,URINE NEGATIVE (NEGATIVE); OCCULT BLOOD,URINE MODERATE (NEGATIVE); PROTEIN,URINE TRACE mg/dL (NEGATIVE); UROBILINOGEN,URINE NORMAL (NEGATIVE)
[2023-01-10 09:50] LABS: APPEARANCE,URINE CLEAR (CLEAR); BACTERIA,URINE RARE (NS); COLOR,URINE YELLOW (YELLOW); RBC,URINE 0-5 (0-5); SQUAMOUS EPITHELIAL CELLS,UR RARE (NS,R,O); WBC,URINE 0-5 (0-5)
[2023-01-10] MEDS: Simethicone 80 MG Tab.Chew PO PRN ×2 (10:16→20:40)
[2023-01-10] MEDS: traMADol 50 MG Tab PO PRN ×2 (16:53→22:26)
[2023-01-10] MEDS: Melatonin 3 MG Tab PO SCH (20:40)
[2023-01-10] MEDS: Doxepin 25 MG Cap PO SCH (20:42)
[2023-01-10] MEDS: Montelukast 10 MG Tab PO SCH (20:43)
[2023-01-10] MEDS: Metoprolol Succinate 25 MG Tab.ER PO SCH (20:44)
[2023-01-11] MEDS: Pantoprazole 40 MG Tab.CR PO SCH (06:27)
[2023-01-11] MEDS: metFORMIN 500 MG Tab PO SCH ×2 (07:39→16:59)
[2023-01-11] MEDS: Tamsulosin 0.4 MG Cap.ER PO SCH (08:43)
[2023-01-11] MEDS: Amiodarone 200 MG Tab PO SCH (08:43)
[2023-01-11] MEDS: Acetaminophen 500 MG Tab PO SCH ×3 (08:43→21:17)
[2023-01-11] MEDS: traMADol 50 MG Tab PO SCH (08:45)
[2023-01-11] MEDS: Propranolol 60 MG Cap.ER PO SCH (08:46)
[2023-01-11] MEDS: Furosemide 20 MG Tab PO SCH (08:46)
[2023-01-11] MEDS: Calcitriol 0.25 MCG Cap PO SCH (08:47)
[2023-01-11] MEDS: Rosuvastatin 10 MG Tab PO SCH (08:47)
[2023-01-11] MEDS: Enoxaparin 40 MG/0.4 ML Syringe SUBCUT SCH ×2 (08:51→10:08)
[2023-01-11] MEDS: traMADol 50 MG Tab PO PRN (17:16)
[2023-01-11] MEDS: Melatonin 3 MG Tab PO SCH (21:17)
[2023-01-11] MEDS: Metoprolol Succinate 25 MG Tab.ER PO SCH (21:19)
[2023-01-11] MEDS: Doxepin 25 MG Cap PO SCH (21:19)
[2023-01-11] MEDS: Montelukast 10 MG Tab PO SCH (21:20)
[2023-01-12] MEDS: Pantoprazole 40 MG Tab.CR PO SCH (07:13)
[2023-01-12] MEDS: metFORMIN 500 MG Tab PO SCH ×2 (08:54→18:23)
[2023-01-12] MEDS: Calcitriol 0.25 MCG Cap PO SCH (08:55)
[2023-01-12] MEDS: Amiodarone 200 MG Tab PO SCH (08:55)
[2023-01-12] MEDS: Rosuvastatin 10 MG Tab PO SCH (08:55)
[2023-01-12] MEDS: Furosemide 20 MG Tab PO SCH (08:55)
[2023-01-12] MEDS: Acetaminophen 500 MG Tab PO SCH ×3 (08:56→21:27)
[2023-01-12] MEDS: Propranolol 60 MG Cap.ER PO SCH (08:56)
[2023-01-12] MEDS: Tamsulosin 0.4 MG Cap.ER PO SCH (08:56)
[2023-01-12] MEDS: Aspirin 81 MG Tab.EC PO SCH (08:56)
[2023-01-12] MEDS: traMADol 50 MG Tab PO SCH (09:41)
[2023-01-12] MEDS: Enoxaparin 40 MG/0.4 ML Syringe SUBCUT SCH (09:42)
[2023-01-12] MEDS: Simethicone 80 MG Tab.Chew PO PRN (17:32)
[2023-01-12] MEDS: Metoprolol Succinate 25 MG Tab.ER PO SCH (21:25)
[2023-01-12] MEDS: Melatonin 3 MG Tab PO SCH (21:27)
[2023-01-12] MEDS: Doxepin 25 MG Cap PO SCH (21:28)
[2023-01-12] MEDS: Montelukast 10 MG Tab PO SCH (21:29)
[2023-01-13] MEDS: Pantoprazole 40 MG Tab.CR PO SCH ×2 (04:05→10:42)
[2023-01-13] MEDS: metFORMIN 500 MG Tab PO SCH ×2 (08:32→17:54)
[2023-01-13] MEDS: Amiodarone 200 MG Tab PO SCH (08:33)
[2023-01-13] MEDS: Tamsulosin 0.4 MG Cap.ER PO SCH (08:33)
[2023-01-13] MEDS: Rosuvastatin 10 MG Tab PO SCH (08:33)
[2023-01-13] MEDS: Ergocalciferol (Vitamin D2) 1.25 MG Cap PO SCH (08:33)
[2023-01-13] MEDS: Furosemide 20 MG Tab PO SCH (08:33)
[2023-01-13] MEDS: Calcitriol 0.25 MCG Cap PO SCH (08:34)
[2023-01-13] MEDS: Propranolol 60 MG Cap.ER PO SCH (08:34)
[2023-01-13] MEDS: Acetaminophen 500 MG Tab PO SCH ×3 (08:34→20:16)
[2023-01-13] MEDS: traMADol 50 MG Tab PO SCH (09:38)
[2023-01-13] MEDS: Enoxaparin 40 MG/0.4 ML Syringe SUBCUT SCH (09:39)
[2023-01-13] MEDS: Melatonin 3 MG Tab PO SCH (20:16)
[2023-01-13] MEDS: Doxepin 25 MG Cap PO SCH (20:16)
[2023-01-13] MEDS: Metoprolol Succinate 25 MG Tab.ER PO SCH (20:17)
[2023-01-13] MEDS: Montelukast 10 MG Tab PO SCH (20:17)
[2023-01-14] MEDS: Pantoprazole 40 MG Tab.CR PO SCH (06:20)
[2023-01-14] MEDS: Tamsulosin 0.4 MG Cap.ER PO SCH (08:40)
[2023-01-14] MEDS: Furosemide 20 MG Tab PO SCH (08:40)
[2023-01-14] MEDS: Aspirin 81 MG Tab.EC PO SCH (08:40)
[2023-01-14] MEDS: metFORMIN 500 MG Tab PO SCH ×2 (08:40→19:10)
[2023-01-14] MEDS: traMADol 50 MG Tab PO SCH (08:41)
[2023-01-14] MEDS: Acetaminophen 500 MG Tab PO SCH ×3 (08:41→20:50)
[2023-01-14] MEDS: Calcitriol 0.25 MCG Cap PO SCH (08:41)
[2023-01-14] MEDS: Amiodarone 200 MG Tab PO SCH (08:42)
[2023-01-14] MEDS: Rosuvastatin 10 MG Tab PO SCH (08:42)
[2023-01-14] MEDS: Propranolol 60 MG Cap.ER PO SCH (08:42)
[2023-01-14] MEDS: Enoxaparin 40 MG/0.4 ML Syringe SUBCUT SCH (09:30)
[2023-01-14] MEDS: Melatonin 3 MG Tab PO SCH (20:49)
[2023-01-14] MEDS: Montelukast 10 MG Tab PO SCH (20:50)
[2023-01-14] MEDS: Doxepin 25 MG Cap PO SCH (20:50)
[2023-01-14] MEDS: Metoprolol Succinate 25 MG Tab.ER PO SCH (20:51)
[2023-01-15] MEDS: Pantoprazole 40 MG Tab.CR PO SCH ×2 (04:07→05:00)
[2023-01-15] MEDS: Simethicone 80 MG Tab.Chew PO PRN (04:07)
[2023-01-15] MEDS: Amiodarone 200 MG Tab PO SCH (09:56)
[2023-01-15] MEDS: Propranolol 60 MG Cap.ER PO SCH (09:57)
[2023-01-15] MEDS: Rosuvastatin 10 MG Tab PO SCH (09:57)
[2023-01-15] MEDS: Furosemide 20 MG Tab PO SCH (09:57)
[2023-01-15] MEDS: traMADol 50 MG Tab PO SCH (09:58)
[2023-01-15] MEDS: Calcitriol 0.25 MCG Cap PO SCH (09:58)
[2023-01-15] MEDS: Acetaminophen 500 MG Tab PO SCH ×3 (09:58→20:06)
[2023-01-15] MEDS: Tamsulosin 0.4 MG Cap.ER PO SCH (09:59)
[2023-01-15] MEDS: Enoxaparin 40 MG/0.4 ML Syringe SUBCUT SCH (09:59)
[2023-01-15] MEDS: metFORMIN 500 MG Tab PO SCH ×2 (10:05→19:10)
[2023-01-15] MEDS: Melatonin 3 MG Tab PO SCH (20:03)
[2023-01-15] MEDS: Doxepin 25 MG Cap PO SCH (20:04)
[2023-01-15] MEDS: Metoprolol Succinate 25 MG Tab.ER PO SCH (20:05)
[2023-01-15] MEDS: Montelukast 10 MG Tab PO SCH (20:06)
[2023-01-15] MEDS: traMADol 50 MG Tab PO PRN (22:16)
[2023-01-16] MEDS: Pantoprazole 40 MG Tab.CR PO SCH (05:27)
[2023-01-16] MEDS: metFORMIN 500 MG Tab PO SCH ×2 (08:07→17:24)
[2023-01-16] MEDS: Aspirin 81 MG Tab.EC PO SCH (08:32)
[2023-01-16] MEDS: Calcitriol 0.25 MCG Cap PO SCH (08:32)
[2023-01-16] MEDS: Rosuvastatin 10 MG Tab PO SCH (08:32)
[2023-01-16] MEDS: Furosemide 20 MG Tab PO SCH (08:33)
[2023-01-16] MEDS: Tamsulosin 0.4 MG Cap.ER PO SCH (08:33)
[2023-01-16] MEDS: Amiodarone 200 MG Tab PO SCH (08:33)
[2023-01-16] MEDS: Acetaminophen 500 MG Tab PO SCH ×3 (08:33→21:32)
[2023-01-16] MEDS: traMADol 50 MG Tab PO SCH (08:38)
[2023-01-16] MEDS: Propranolol 80 MG Cap.ER PO SCH (10:01)
[2023-01-16] MEDS: Enoxaparin 40 MG/0.4 ML Syringe SUBCUT SCH (10:02)
[2023-01-16] MEDS: Simethicone 80 MG Tab.Chew PO PRN (12:59)
[2023-01-16] MEDS: Melatonin 3 MG Tab PO SCH (21:30)
[2023-01-16] MEDS: Montelukast 10 MG Tab PO SCH (21:31)
[2023-01-16] MEDS: Doxepin 25 MG Cap PO SCH (21:31)
[2023-01-16] MEDS: Metoprolol Succinate 25 MG Tab.ER PO SCH (21:32)
[2023-01-17] MEDS: Pantoprazole 40 MG Tab.CR PO SCH (05:39)
[2023-01-17] MEDS: metFORMIN 500 MG Tab PO SCH ×2 (07:53→17:41)
[2023-01-17] MEDS: Tamsulosin 0.4 MG Cap.ER PO SCH (08:34)
[2023-01-17] MEDS: Amiodarone 200 MG Tab PO SCH (08:34)
[2023-01-17] MEDS: Propranolol 80 MG Cap.ER PO SCH (08:34)
[2023-01-17] MEDS: Rosuvastatin 10 MG Tab PO SCH (08:34)
[2023-01-17] MEDS: Furosemide 20 MG Tab PO SCH (08:35)
[2023-01-17] MEDS: Calcitriol 0.25 MCG Cap PO SCH (08:35)
[2023-01-17] MEDS: Acetaminophen 500 MG Tab PO SCH ×3 (08:36→20:52)
[2023-01-17] MEDS: traMADol 50 MG Tab PO SCH (08:39)
[2023-01-17] MEDS: Enoxaparin 40 MG/0.4 ML Syringe SUBCUT SCH (10:45)
[2023-01-17] MEDS: Simethicone 80 MG Tab.Chew PO PRN (14:23)
[2023-01-17] MEDS: Melatonin 3 MG Tab PO SCH (20:49)
[2023-01-17] MEDS: Doxepin 25 MG Cap PO SCH (20:50)
[2023-01-17] MEDS: Montelukast 10 MG Tab PO SCH (20:51)
[2023-01-17] MEDS: Metoprolol Succinate 25 MG Tab.ER PO SCH (20:51)
[2023-01-18] MEDS: Pantoprazole 40 MG Tab.CR PO SCH (05:50)
[2023-01-18] MEDS: metFORMIN 500 MG Tab PO SCH (08:32)
[2023-01-18] MEDS: Amiodarone 200 MG Tab PO SCH (08:32)
[2023-01-18] MEDS: Aspirin 81 MG Tab.EC PO SCH (08:32)
[2023-01-18] MEDS: Rosuvastatin 10 MG Tab PO SCH (08:32)
[2023-01-18] MEDS: Acetaminophen 500 MG Tab PO SCH (08:32)
[2023-01-18] MEDS: Calcitriol 0.25 MCG Cap PO SCH (08:33)
[2023-01-18] MEDS: Propranolol 80 MG Cap.ER PO SCH (08:33)
[2023-01-18] MEDS: Furosemide 20 MG Tab PO SCH (08:33)
[2023-01-18] MEDS: Tamsulosin 0.4 MG Cap.ER PO SCH (08:34)
[2023-01-18] MEDS: traMADol 50 MG Tab PO SCH (08:36)
== END 2023-01-18 10:40 | DRG 948 ==
LOC: FB.MS 01-05 12:30
PROVIDERS: ADMIT Family Medicine; ATTEND Family Medicine
DX: R53.1 Weakness (principal); I48.91 Unspecified atrial fibrillation; R60.1 Generalized edema; I10 Essential (primary) hypertension; G47.00 Insomnia, unspecified; N40.0 Benign prostatic hyperplasia without lower urinary tract symptoms; E88.09 Other disorders of plasma-protein metabolism, not elsewhere classified; M54.50 Low back pain, unspecified; G89.29 Other chronic pain; I95.9 Hypotension, unspecified; Z72.0 Tobacco use; R25.1 Tremor, unspecified; E11.51 Type 2 diabetes mellitus with diabetic peripheral angiopathy without gangrene; I25.10 Atherosclerotic heart disease of native coronary artery without angina pectoris; E66.9 Obesity, unspecified; M17.0 Bilateral primary osteoarthritis of knee; M16.0 Bilateral primary osteoarthritis of hip; Z99.3 Dependence on wheelchair; Z79.4 Long term (current) use of insulin
CPT/HCPCS: 51798; 80053; 81001; 82947; 83880; 85025; 97110-GO; 97110-GP; 97116-GP; 97530-GO; 97530-GP; 97535-GO; 99306; 99308; 99315; A9270-GY; J0692; J1642; J1650; J3490

== ENCOUNTER 2023-03-19 15:47 | Observation (INO) | payer MEDICARE ==
[2023-03-19 16:12] LABS: BASOPHILS ABSOLUTE AUTO 0.1 x10-3/uL (0.0-0.3); BASOPHILS PERCENT AUTO 0.8 % (0.3-3.8); EOSINOPHILS ABSOLUTE AUTO 0.4 x10-3/uL (0.0-0.6); EOSINOPHILS PERCENT AUTO 4.9 % (0.1-6.8); HEMATOCRIT 37.5 % (38.3-50.1); HEMOGLOBIN 12.7 g/dL (12.9-17.7); LYMPHOCYTES ABSOLUTE AUTO 1.5 x10-3/uL (0.5-4.5); LYMPHOCYTES PERCENT AUTO 19.8 % (15.8-45.3); MEAN CORPUSCULAR HEMOGLOBIN 29.7 pg (27.0-33.3); MEAN CORPUSCULAR HGB CONC 33.9 g/dL (28.7-35.3); MEAN CORPUSCULAR VOLUME 87.6 fL (80.8-98.7); MEAN PLATELET VOLUME 7.2 fL (6.7-11.0); MONOCYTES ABSOLUTE AUTO 0.4 x10-3/uL (0.0-1.2); MONOCYTES PERCENT AUTO 4.9 % (5.5-15.2); NEUTROPHILS ABSOLUTE AUTO 5.3 x10-3/uL (1.7-6.9); NEUTROPHILS PERCENT AUTO 69.6 % (40.3-71.8); PLATELET COUNT,PLT 166 x10(3)uL (117-477); RED BLOOD CELL COUNT 4.28 x10(6)uL (3.90-5.90); RED CELL DISTRIBUTION WIDTH 17.6 % (12.4-15.0); WHITE BLOOD CELL COUNT,WBC 7.7 x10-3/uL (3.2-10.1)
[2023-03-19 16:24] LABS: INR 1.14 (1.00-1.24); PROTHROMBIN TIME 11.7 sec (9.0-11.1); PTT,PARTIAL THROMBOPLSTIN TIME 32.2 SECONDS (24.4-33.2)
[2023-03-19 16:26] LABS: TROPONIN I 6.7 pg/mL (4.0-60.3)
[2023-03-19] MEDS ORDERED: Sodium Chloride 0.9% 1,000 ML IV SCH (16:30)
[2023-03-19 16:33] LABS: SODIUM,NA 129 mmol/L (135-145)
[2023-03-19 16:35] LABS: BLOOD UREA NITROGEN,BUN 61 mg/dL (7-18); BUN/CREATININE RATIO 32.1 (9-20); CALCIUM 9.5 mg/dL (8.6-10.2); CARBON DIOXIDE,CO2 18 mmol/L (21-32); CHLORIDE,CL 98 mmol/L (100-110); CREATININE 1.9 mg/dL (0.70-1.30); ESTIMATED GFR 36 mL/min (>60); GLUCOSE RANDOM 130 mg/dL (80-116); POTASSIUM,K 6.3 mmol/L (3.5-5.3); PROTEIN TOTAL,TP 7.3 g/dL (6.0-8.0)
[2023-03-19 16:36] LABS: A/G RATIO 0.8; ALANINE AMINOTRANSFERASE,ALT 21 U/L (12-36); ALBUMIN 3.3 g/dL (3.2-4.6); ALKALINE PHOSPHATASE 97 IU/L (56-112); ASPARTATE AMNIOTRANSFERASE,AST 18 IU/L (5-25); BILIRUBIN TOTAL 0.4 mg/dL (0.1-1.3)
[2023-03-19 16:37] LABS: C-REACTIVE PROTEIN < 0.50 mg/dL (<0.50)
[2023-03-19 19:30] LABS: INFLUENZA A NAA NEGATIVE (NEGATIVE); INFLUENZA B NAA NEGATIVE (NEGATIVE); RESPIRATORY SYNCYTIAL VIR NAA NEGATIVE (NEGATIVE)
[2023-03-19 19:31] LABS: CORONAVIRUS COVID-19 NAA NEGATIVE (NEGATIVE)
[2023-03-19] MEDS ORDERED: Calcium Gluconate 10% 1 GM/10 ML SDV IVPUSH ONE (19:52)
[2023-03-19] MEDS ORDERED: Glucagon,Human Recombinant 1 MG Vial IM PRN ×2 (19:52→19:54)
[2023-03-19] MEDS ORDERED: 50% Dextrose in Water 50 ML Syringe IVPUSH PRN ×2 (19:52→19:54)
[2023-03-19] MEDS ORDERED: Insulin Regular, Human 100 Units/ML 3 ML Vial IV ONE (19:52)
[2023-03-19] MEDS ORDERED: Magnesium Hydroxide 400 MG/5 ML Susp 30 ML Cup PO PRN (19:56)
[2023-03-19] MEDS ORDERED: Zolpidem 5 MG Tab PO PRN (19:56)
[2023-03-19] MEDS ORDERED: Albuterol 0.083% 2.5 MG/3 ML Neb Soln NEB PRN (19:56)
[2023-03-19] MEDS ORDERED: Enoxaparin 40 MG/0.4 ML Syringe SUBCUT SCH (20:00)
[2023-03-19] MEDS ORDERED: Saccharomyces Boulardii (Probiotic) 250 MG Cap PO SCH (21:00)
[2023-03-19] MEDS ORDERED: Rosuvastatin 10 MG Tab PO SCH (21:00)
[2023-03-19] MEDS: Sodium Chloride 0.9% 1,000 ML IV SCH (21:25)
[2023-03-20 06:50] LABS: BASOPHILS PERCENT AUTO 0.6 % (0.3-3.8); EOSINOPHILS ABSOLUTE AUTO 0.3 x10-3/uL (0.0-0.6); EOSINOPHILS PERCENT AUTO 4.4 % (0.1-6.8); HEMATOCRIT 33.2 % (38.3-50.1); LYMPHOCYTES ABSOLUTE AUTO 1.5 x10-3/uL (0.5-4.5); LYMPHOCYTES PERCENT AUTO 23.2 % (15.8-45.3); MEAN CORPUSCULAR HEMOGLOBIN 28.9 pg (27.0-33.3); MEAN CORPUSCULAR HGB CONC 33.2 g/dL (28.7-35.3); MEAN CORPUSCULAR VOLUME 87.2 fL (80.8-98.7); MEAN PLATELET VOLUME 7.2 fL (6.7-11.0); MONOCYTES ABSOLUTE AUTO 0.4 x10-3/uL (0.0-1.2); MONOCYTES PERCENT AUTO 6.3 % (5.5-15.2); NEUTROPHILS ABSOLUTE AUTO 4.3 x10-3/uL (1.7-6.9); NEUTROPHILS PERCENT AUTO 65.5 % (40.3-71.8); PLATELET COUNT,PLT 150 x10(3)uL (117-477); WHITE BLOOD CELL COUNT,WBC 6.5 x10-3/uL (3.2-10.1)
[2023-03-20 06:57] LABS: BLOOD UREA NITROGEN,BUN 55 mg/dL (7-18); BUN/CREATININE RATIO 34.4 (9-20); CALCIUM 9.1 mg/dL (8.6-10.2); CARBON DIOXIDE,CO2 19 mmol/L (21-32); CHLORIDE,CL 105 mmol/L (100-110); CREATININE 1.6 mg/dL (0.70-1.30); EST CRCL DRUG DOSING (CG) 38.59 mL/min; ESTIMATED GFR 45 mL/min (>60); GLUCOSE RANDOM 89 mg/dL (80-116); SODIUM,NA 136 mmol/L (135-145)
[2023-03-20 07:01] LABS: TROPONIN I 7.5 pg/mL (4.0-60.3)
[2023-03-20 07:02] LABS: C-REACTIVE PROTEIN < 0.50 mg/dL (<0.50)
[2023-03-20 07:19] LABS: RED BLOOD CELL COUNT 3.81 x10(6)uL (3.90-5.90)
[2023-03-20] MEDS: Sodium Chloride 0.9% 1,000 ML IV SCH (07:30)
[2023-03-20] MEDS ORDERED: Pantoprazole 40 MG Tab.CR PO SCH (07:30)
[2023-03-20] MEDS ORDERED: Insulin Lispro 100 Unit/ML 3 ML KwikPen SUBCUT SCH (08:00)
[2023-03-20] MEDS ORDERED: Montelukast 10 MG Tab PO SCH ×2 (09:00→21:00)
[2023-03-20] MEDS ORDERED: Cetirizine 10 MG Tab PO SCH (09:00)
[2023-03-20] MEDS ORDERED: Clopidogrel 75 MG Tab PO SCH (09:00)
[2023-03-20] MEDS ORDERED: Propranolol 80 MG Cap.ER PO SCH ×2 (09:00→09:30)
[2023-03-20] MEDS ORDERED: Primidone 50 MG Tab PO SCH (09:00)
[2023-03-20] MEDS ORDERED: Tamsulosin 0.4 MG Cap.ER PO SCH (09:00)
[2023-03-20] MEDS ORDERED: Apixaban 5 MG Tab PO SCH (09:30)
[2023-03-20] MEDS ORDERED: Amiodarone 200 MG Tab PO SCH (09:30)
== END 2023-03-20 11:15 | disposition home or self-care (01) ==
LOC: FB.ED 15:47 → FB.MS 19:30
PROVIDERS: ADMIT Family Medicine; ATTEND Family Medicine
DX: R07.9 Chest pain, unspecified (principal); E11.9 Type 2 diabetes mellitus without complications; I10 Essential (primary) hypertension; E87.6 Hypokalemia; N17.9 Acute kidney failure, unspecified; J44.9 Chronic obstructive pulmonary disease, unspecified; E78.00 Pure hypercholesterolemia, unspecified; I25.10 Atherosclerotic heart disease of native coronary artery without angina pectoris; F17.210 Nicotine dependence, cigarettes, uncomplicated; Z20.822 Contact with and (suspected) exposure to COVID-19; Z79.82 Long term (current) use of aspirin; Z79.899 Other long term (current) drug therapy; Z88.2 Allergy status to sulfonamides
CPT/HCPCS: 0241U; 36415; 71046; 80048; 80053; 82947; 83605; 83735; 84484; 85025; 85610; 85730; 86140; 87040; 87070; 87205; 93005; 93010; 96360; 96361; 96372; 96374; 99222; 99238; 99285; 99285-25; A9270-GY; G0378; J0612; J1650; J1815; J1815-GY; J7030